=== PATIENT | female | born 1930 | race Caucasian/White ===

== ENCOUNTER 2017-12-18 15:56 | Inpatient (IN) | payer MEDICARE, OTHER ==
--- NOTE | 2017-12-18 16:59 | CT ---
CT BRAIN WITHOUT CONTRAST: HISTORY: Altered mental status. COMPARISON: None. FINDINGS: No acute territorial infarction or hemorrhage. No midline shift or mass effect. Moderate atrophy. Moderate to severe deep white matter microangiopathic changes. The orbits are unremarkable. The calvarium is intact. Paranasal sinuses and mastoids are clear. IMPRESSION: No acute intracranial abnormality. POS: [facility]
--- NOTE | 2017-12-18 17:18 | RAD ---
PORTABLE CHEST: 12/18/17 HISTORY: Dyspnea. COMPARISON: 12/15/17. FINDINGS/IMPRESSION: Bilateral pleural effusions, larger on the right. Cardiomegaly. Mild vascular engorgement. Bibasilar atelectasis and/or consolidation. POS: [facility]
[2017-12-18 17:36] LABS: #Eosinphils 0.1 thou/uL (0.0-0.7); #Lymphocytes 0.9 thou/uL (1.20-3.40); #Monocytes 0.3 thou/uL (0.11-0.59); #Neutrophils 12.3 thou/uL (1.40-6.50); %Basophils 0.2 % (0.0-1.0); %Eosinophils 1.1 % (0.0-10.0); %Lymphocytes 6.3 % (21.0-51.0); %Monocytes 2.1 % (0.0-10.0); %Neutrophils 90.3 % (42.0-75.0); Hemoglobin 14.9 g/dL (12.0-16.0); Mean Corpuscular HGB CONC 31.5 g/dL (32.0-36.0); Mean Corpuscular Hemoglobin 31.9 pg (27.0-31.0); Platelet Count 412 thou/uL (130-400); RBC Distribution Width 16.5 % (11.5-14.5); Red Blood Cell (RBC) Count 4.66 mill/uL (4.20-5.40); White Blood Cell (WBC) Count 13.6 thou/uL (4.8-10.8)
[2017-12-18] MEDS ORDERED: Furosemide 40 MG/4 ML VIAL ONE (17:39)
[2017-12-18] MEDS ORDERED: Nitroglycerin 2% Ointment 1 INCH/1 GM Packet ONE (17:39)
[2017-12-18 17:44] LABS: INR-International Normal Ratio 1.1; PTT 31.2 SEC (22.9-36.1); Prothrombin Time 14.5 SEC (12.0-14.7)
[2017-12-18] MEDS ORDERED: Azithromycin 500 MG VIAL ONE (17:51)
[2017-12-18 17:52] LABS: ALT (SGPT) 16 U/L (8-55); AST (SGOT) 18 U/L (5-34); Albumin 3.5 g/dL (3.4-4.8); Alkaline Phosphatase 117 U/L (40-150); Anion Gap 16 mmol/L (10-20); BUN (Urea Nitrogen) 18 mg/dL (9.8-20.1); Bilirubin, Total 1.1 mg/dL (0.2-1.2); CK (CPK) 22 U/L (29-168); Calc. Creatinine Clearance 0 mL/min (70-130); Calcium 9.2 mg/dL (7.8-10.44); Carbon Dioxide 31 mmol/L (23-31); Chloride 91 mmol/L (98-107); Estimated GFR-MDRD 71; Globulin 2.5 g/dL (2.4-3.5); Glucose 103 mg/dL (83-110); Lipase 10 U/L (8-78); Potassium 3.6 mmol/L (3.5-5.1); Sodium 134 mmol/L (136-145)
[2017-12-18 17:57] LABS: CKMB 1.2 ng/mL (0-6.6); Troponin I 0.026 ng/mL (< 0.028)
[2017-12-18] MEDS ORDERED: Ondansetron HCl/PF 4 MG/2 ML Vial IVP PRN (20:58)
[2017-12-18] MEDS ORDERED: Acetaminophen 325 MG TAB PO PRN (20:58)
[2017-12-18] MEDS ORDERED: Ondansetron ODT 4 MG TAB SL PRN (20:58)
[2017-12-18] MEDS ORDERED: HYDROcodone/Acetaminophen 5/325 mg Tablet PO PRN (20:58)
[2017-12-18 21:09] LABS: Troponin I 0.025 ng/mL (< 0.028)
[2017-12-18 23:33] LABS: Troponin I 0.024 ng/mL (< 0.028)
[2017-12-19] MEDS ORDERED: HYDROcodone/Acetaminophen 5/325 mg Tablet PO PRN (01:40)
[2017-12-19] MEDS ORDERED: Acetaminophen 325 MG TAB PO PRN (01:47)
[2017-12-19] MEDS ORDERED: Bisacodyl 10 MG SUPP PR PRN (01:47)
[2017-12-19] MEDS ORDERED: Nitroglycerin 0.4 MG TAB (25 Tab Bottle) PO PRN (01:47)
[2017-12-19] MEDS ORDERED: Eucerin (Mineral Oil/Petrolatum,White) 30 gm Jar TOP PRN (01:49)
[2017-12-19] MEDS ORDERED: hydrALAZINE 20 MG/ML VIAL SLOW IVP PRN (01:49)
--- NOTE | 2017-12-19 01:50 | PDOC.EVN ---
Event Note - Event Note Event Note: No Lovenox due to recent back surgery
--- NOTE | 2017-12-19 02:56 | HP ---
DATE OF ADMISSION: 12/18/2017 The patient was seen and examined on 12/18/2017. PRIMARY CARE PHYSICIAN: Dr. Andersen at [facility]. Please note patient was a transf er from [facility]. PRIMARY MANAGER ENTERPRISE CONTENT MANAGEMENT: Dr. Gale at [facility]. CODE STATUS: FULL CODE. SURROGATE DECISION MAKER: The daughter, daughter at the bedside. CHIEF COMPLAINT: Shortness of breath. HISTORY OF PRESENT ILLNESS: The patient is an 87-year-old female with chronic obstructive pulmonary disease, chronic diastolic heart failure with recent back surgery currently deciding at the inpatient rehabilitation presented to the Emergency Room from [facility] due to shortness of br eath. The patient was admitted at [facility] from 11/28/2017 to 12/09/2017. She was d iagnosed with T12 compression fracture. She also had on code blue due to pain medications requiring intubation and mechanical ventilation. An echocardiogram showed normal ejection fraction. She also had a recent stress test that was normal. She underwent surgery without any complications. She was then discharged to inpatient rehabilitation on the . At the inpatient rehabilitation, she had some issues with constipation/fecal retention. She also dev eloped some congestive heart failure and Lasix was resumed. She has been also having some intermitte nt hallucination and tremors, which the daughter thinks could be due to tramadol that was started at the inpatient rehabilitation. In the emergency room, her initial vital signs showed temperature 97.5, respirations 28, pulse rate o f 68, blood pressure 148/63 with O2 saturation 68% on room air. O2 saturation improved to 94% on 3 l iters nasal cannula. The chest x-ray showed bilateral pleural effusions, larger on the right with car diomegaly and mild vascular engorgement. There was possible bilateral atelectasis and/or consolidati on. She received ceftriaxone, azithromycin, 40 mg IV Lasix with aspirin and 1 inch nitro patch. A B PSYCHOLOGIST SOCIAL was 1500 with negative troponins. PAST MEDICAL HISTORY: 1. Atrial fibrillation. 2. Non-Hodgkin's lymphoma. 3. Congestive heart failure, diastolic type, with an echocardiogram last month. 4. Chronic obstructive pulmonary disease. 5. Gastroesophageal reflux disease. 6. Hypertension. 7. Peptic ulcer disease. 8. Macular degeneration. The patient is legally blind. 9. Depression. PAST SURGICAL HISTORY: Gastric surgery, details unavailable. ALLERGIES: The patient is allergic to SULFA, FLAGYL and possible TRAMADOL per family. CURRENT HOME MEDICATIONS: According to the list provided by the daughter, Delma; Prozac 60 mg leana ly, Valtrex 500 mg 4 times a day, Bentyl as needed, Lomotil as needed, aspirin 81 mg daily, albuterol as needed, carvedilol 25 b.i.d., amiodarone 200 mg daily, Sherrard 5/325 half tablet as needed, lidocai ne patch, and nystatin. SOCIAL HISTORY: The patient currently is at the inpatient rehabilitation. No smoking, alcohol or dr ug use. FAMILY HISTORY: Negative for premature coronary artery disease. REVIEW OF SYSTEMS: Cannot be reliably obtained from the patient due to current cognitive status. PHYSICAL EXAMINATION: VITAL SIGNS: As discussed above. GENERAL: An 87-year-old female with intermittent confusion. At times, she is alert and awake. HEENT: Head: Atraumatic, normocephalic. Sclerae are anicteric. Moist mucous membranes. No oral l esion. NECK: Supple, no JVD appreciated. No carotid bruit. LUNGS: Showed diffuse expiratory wheezing with diminished air entry at bases. There were scattered rhonchi. HEART: S1, S2 present. Regular rate and rhythm. No rubs or gallops appreciated. There was 2/6 sys tolic murmur over the mitral area. ABDOMEN: Soft, nontender, bowel sounds present. EXTREMITIES: No edema or calf tenderness. NEUROLOGIC: The patient is intermittently confused. She appears anxious. She has spontaneous tremo rs. According to daughter, she also had some hallucinations. NEUROLOGIC: Could not be done due to current cognitive status. PSYCHIATRY: Could not be done due to current cognitive status. SKIN: Warm and dry. LYMPH NODES: No palpable lymph nodes in the neck. PERIPHERAL VASCULAR: Radial pulses palpable bilaterally. MUSCULOSKELETAL: No joint swelling or tenderness. LABORATORY FINDINGS: Troponins were negative. BNP 1510. Sodium 134, potassium 3.6. WBC was 13.6 w ith hemoglobin 14.9, platelet count of 412. Chest x-ray and EKG by my review as discussed above. EK G showed sinus rhythm with nonspecific ST-T wave changes. IMPRESSION: 1. Acute hypoxic respiratory failure. 2. Acute on chronic diastolic heart failure exacerbation. 3. Bilateral pneumonia, suspected aspiration. 4. Chronic obstructive pulmonary disease exacerbation. 5. Non-Hodgkin's lymphoma followed at [facility]. 6. Paroxysmal atrial fibrillation, probably not an anticoagulation candidate. 7. Gastroesophageal reflux disease. 8. Peptic ulcer disease. 9. Hypertension. 10. Macular degeneration/legal blindness. 11. Depression. 12. Leukocytosis probably secondary to pneumonia. 13. Hyponatremia. 14. Recent back surgery. 15. Recent respiratory arrest requiring mechanical ventilation from pain medications at [place] and it. 16. Toxic metabolic encephalopathy. PLAN: The patient will be monitored on the telemetry unit. We will consult speech therapy. Please note, patient had barium swallow with speech at [facility]. The patient's daughter can probably get the report from [facility] my charts. We will also rule out deep venous thrombosis due to recent hospitalization and surgery. We will start low dose diuretics along with steroids, antibiotic s, nebulizer treatment and oxygen. Consult Pulmonary in a.m. We will repeat chest x-ray. Resume se lected home medications. Discontinue tramadol. The patient will require 2 to 3 days for stabilizati on Plan of care was discussed with the patient and her daughter, Delma at the bedside. Please note that patient was seen on 12/18/2017.
[2017-12-19] MEDS ORDERED: Cefepime 1 GM in Syringe 10 ML SLOW IVP SCH (05:00)
[2017-12-19] MEDS ORDERED: Furosemide 40 MG/4 ML VIAL SLOW IVP SCH (06:00)
[2017-12-19] MEDS ORDERED: Furosemide 20 MG/2 ML VIAL SLOW IVP SCH (06:00)
[2017-12-19] MEDS ORDERED: Aspirin 325 mg Enteric Coated Tablet PO SCH (06:00)
[2017-12-19 06:10] LABS: #Basophils 0.1 thou/uL (0.0-0.2); #Eosinphils 0.1 thou/uL (0.0-0.7); #Lymphocytes 0.7 thou/uL (1.20-3.40); #Monocytes 0.9 thou/uL (0.11-0.59); #Neutrophils 15.1 thou/uL (1.40-6.50); %Basophils 0.7 % (0.0-1.0); %Eosinophils 0.5 % (0.0-10.0); %Lymphocytes 4.2 % (21.0-51.0); %Monocytes 5.2 % (0.0-10.0); %Neutrophils 89.4 % (42.0-75.0); Hemoglobin 15.5 g/dL (12.0-16.0); Mean Corpuscular HGB CONC 31.4 g/dL (32.0-36.0); Mean Corpuscular Hemoglobin 31.4 pg (27.0-31.0); Mean Platelet Volume 10.3 fL (7.4-10.4); Platelet Count 297 thou/uL (130-400); RBC Distribution Width 16.7 % (11.5-14.5); Red Blood Cell (RBC) Count 4.93 mill/uL (4.20-5.40); White Blood Cell (WBC) Count 16.9 thou/uL (4.8-10.8)
[2017-12-19 07:40] LABS: Folate (Folic Acid) 24.8 ng/mL (7.0-31.4)
--- NOTE | 2017-12-19 07:41 | ULT ---
BILATERAL LOWER EXTREMITY VENOUS DUPLEX EXAM: Date: 12/19/17 HISTORY: Leg pain and swelling. FINDINGS: Real-time color Doppler evaluation of right and left lower extremity was performed from groin to calf . This includes evaluation of the common femoral, superficial and profunda femoral, saphenous, poplit eal, and trifurcation veins. This shows patent deep venous system bilaterally. There is normal compre ssibility and augmentation. There is no evidence of deep venous thrombosis. IMPRESSION: No evidence of deep venous thrombosis of either lower extremity. POS: [facility]
[2017-12-19] MEDS: Carvedilol 6.25 MG TAB PO SCH ×2 (08:28→18:32)
[2017-12-19] MEDS: Lidocaine 5% Patch TD SCH (08:29)
[2017-12-19] MEDS: Amiodarone 200 MG TAB PO SCH (08:34)
[2017-12-19] MEDS: Aspirin 81 mg Enteric Coated Tablet PO SCH (08:34)
[2017-12-19] MEDS: Polyethylene Glycol 3350 17 GM Packet PO SCH (08:35)
--- NOTE | 2017-12-19 08:52 | RAD ---
PORTABLE CHEST: COMPARISON: Prior day's study. HISTORY: Shortness of breath. FINDINGS: Heart size is enlarged. There are atherosclerotic changes of the aorta. There is elevation of the r ight hemidiaphragm. Pleural and parenchymal changes appear relatively stable as compared to the prio r exam. IMPRESSION: Essentially stable chest. POS: [facility]
[2017-12-19] MEDS ORDERED: Doxycycline 100 MG CAP PO SCH (09:00)
[2017-12-19] MEDS ORDERED: FLUoxetine HCl 20 MG CAP PO SCH (09:00)
[2017-12-19] MEDS: FLUoxetine HCl 20 MG CAP PO SCH (09:10)
[2017-12-19] MEDS: Senokot S 8.6-50 MG TAB PO SCH ×2 (09:14→20:26)
[2017-12-19] MEDS: Famotidine 20 MG TAB PO SCH ×2 (09:14→20:26)
[2017-12-19 09:26] LABS: Albumin 3.9 g/dL (3.4-4.8); BUN (Urea Nitrogen) 22 mg/dL (9.8-20.1); BUN/Creatinine Ratio 24.44; Calc. Creatinine Clearance 0 mL/min (70-130); Calcium 9.8 mg/dL (7.8-10.44); Estimated GFR-MDRD 59; Glucose 102 mg/dL (83-110); Phosphorus 3.3 mg/dL (2.3-4.7)
[2017-12-19 09:34] LABS: Anion Gap 22 mmol/L (10-20); Carbon Dioxide 34 mmol/L (23-31); Chloride 84 mmol/L (98-107); Sodium 137 mmol/L (136-145)
[2017-12-19] MEDS: Acetaminophen 650 MG/20.3 ML UDCUP PO SCH ×2 (13:05→18:31)
[2017-12-19] MEDS: Piperacillin/Tazobactam 3.375 GM in Sodium Chloride 0.9% 100 ML IVPB SCH ×2 (13:08→20:32)
--- NOTE | 2017-12-19 14:25 | PDOC.PN ---
- Subjective Encounter Start Date: 12/19/17 Encounter Start Time: 14:24 Subjective: pt sonuinh hallucinations and somnolent -: daughter at bedside.care discussed in detail - Objective Resuscitation Status: Resuscitation Status FULL:Full Resuscitation MAR Reviewed: Yes Vital Signs & Weight: Vital Signs (12 hours) Temp Pulse Pulse Pulse Resp BP BP 12/19/17 13:52 83 20 12/19/17 13:05 107 H 105 H 123/74 12/19/17 10:53 77 20 12/19/17 08:28 118/65 12/19/17 08:12 105 H 12/19/17 08:00 98.1 F 83 22 H 12/19/17 07:47 12/19/17 07:43 88 18 12/19/17 04:00 98.4 F 72 26 H BP BP Pulse Ox Pulse Ox 12/19/17 13:52 12/19/17 13:05 110/59 L 12/19/17 10:53 92 L 12/19/17 08:28 12/19/17 08:12 90 L 12/19/17 08:00 126/58 L 94 L 12/19/17 07:47 95 12/19/17 07:43 95 12/19/17 04:00 96/54 L 93 L Weight Weight 104 lb Result Diagrams: 12/19/17 04:42 12/19/17 04:42 Additional Labs: Microbiology 12/18/17 17:22 Venous blood - Right Hand Blood Culture - Preliminary Specimen has been received and culture in progress. No Growth to date. 12/18/17 17:22 Venous blood - Left Hand Blood Culture - Preliminary Specimen has been received and culture in progress. No Growth to date. Laboratory Tests 10/22/17 12/12/17 12/18/17 05:00 03:35 05:00 WBC Troponin I B-Natriuretic Peptide 474.6 H 1246.7 H 1313.2 H Vitamin B12 Folate TSH 3rd Generation 12/18/17 12/18/17 12/18/17 17:21 17:21 17:21 WBC 13.6 H Troponin I B-Natriuretic Peptide 1510.4 H Vitamin B12 Folate TSH 3rd Generation 3.0717 12/18/17 12/18/17 12/18/17 17:21 20:26 23:00 WBC Troponin I 0.026 0.025 0.024 B-Natriuretic Peptide Vitamin B12 Folate TSH 3rd Generation 12/19/17 12/19/17 04:42 05:18 WBC 16.9 H Troponin I B-Natriuretic Peptide Vitamin B12 947 H Folate 24.80 TSH 3rd Generation Phys Exam - Physical Examination Constitutional: NAD sleepy but easily awakens.hand movements in air when sleeping HEENT: PERRLA, sclera anicteric, oral pharynx no lesions dry mucosa.red raw tounge Neck: no JVD Respiratory: no wheezing, no rales, no rhonchi, clear to auscultation bilateral Cardiovascular: RRR, no significant murmur Gastrointestinal: soft, non-tender, no distention, positive bowel sounds Musculoskeletal: no edema, pulses present Neurological: non-focal, normal sensation, moves all 4 limbs Psychiatric: normal affect, A&O x 3 Skin: no rash Dx/Plan (1) Acute hypoxemic respiratory failure Code(s): J96.01 - ACUTE RESPIRATORY FAILURE WITH HYPOXIA Status: Acute (2) Acute exacerbation of chronic obstructive pulmonary disease (COPD) Code(s): J44.1 - CHRONIC OBSTRUCTIVE PULMONARY DISEASE W (ACUTE) EXACERBATION Status: Acute (3) Aspiration pneumonia Code(s): J69.0 - PNEUMONITIS DUE TO INHALATION OF FOOD AND VOMIT Status: Acute (4) Acute on chronic diastolic congestive heart failure due to valvular disease Code(s): I50.33 - ACUTE ON CHRONIC DIASTOLIC (CONGESTIVE) HEART FAILURE; I38 - ENDOCARDITIS, VALVE UNSPECIFIED Status: Acute (5) Hypokalemia Code(s): E87.6 - HYPOKALEMIA Status: Acute (6) Metabolic encephalopathy Code(s): G93.41 - METABOLIC ENCEPHALOPATHY Status: Acute (7) H/O non-Hodgkin's lymphoma Code(s): Z85.72 - PERSONAL HISTORY OF NON-HODGKIN LYMPHOMAS Status: Acute (8) Paroxysmal atrial fibrillation Code(s): I48.0 - PAROXYSMAL ATRIAL FIBRILLATION Status: Acute Comment: stable on Amiodarone and BB (9) Esophageal stricture Code(s): K22.2 - ESOPHAGEAL OBSTRUCTION Status: Chronic (10) Malnutrition Code(s): E46 - UNSPECIFIED PROTEIN-CALORIE MALNUTRITION Status: Chronic Qualifiers: Malnutrition type: protein-calorie malnutrition Protein-calorie malnutrition severity: moderate Qualified Code(s): E44.0 - Moderate protein- calorie malnutrition - Plan plan discussed w/ family, continue antibiotics, PT/OT, medical social consultant, speech therapy, respiratory therapy, incentive spirometry, out of bed/ambulate, DVT proph w/SCDs Cont nebs, steroids,gentle diuresis.reduce lasix dose. -: consult [facility].pt on pureed diet at Rehab.Op w/u for stricture per family -: cont Levaquin.add Zosyn for possible Asp PNA. -: DC all naroctics.Tylenol scheduled and IV Ibuprofen PRN -: encourage day time wakefullness.add Melatonin qhs * .NAAT pending. * cont supportive care. * Full code for now but daughter leaning towards DNR/DNI.needs more time to think.will consult palliative care team * am labs. * strict I/Os. * ECHO * replace and recheck potassium Review of Systems - Review of Systems Other: can not be reliably obtained due to somnolence but reports no active issues - Medications/Allergies Allergies/Adverse Reactions: Allergies Allergy/AdvReac Type Severity Reaction Status Date / Time metronidazole [From Flagyl] Allergy Verified 12/18/17 22:11 Sulfa (Sulfonamide Allergy Verified 12/18/17 22:11 Antibiotics) tramadol Allergy Verified 12/18/17 22:14 Medications: Current Medications Acetaminophen (Tylenol Elixir) 650 mg PO Q6HR [facility] Last Admin: 12/19/17 13:05 Dose: 650 mg Albuterol/Ipratropium (Duoneb) 3 ml NEB [id number] [facility] Last Admin: 12/19/17 13:52 Dose: 3 ml Albuterol/Ipratropium (Duoneb) 3 ml NEB Q2H PRN PRN Reason: SOB &/or Wheezing Amiodarone HCl (Cordarone) 200 mg PO DAILY [facility] Last Admin: 12/19/17 08:34 Dose: 200 mg Aspirin (Ecotrin) 81 mg PO DAILY [facility] Last Admin: 12/19/17 08:34 Dose: 81 mg Bisacodyl (Dulcolax) 10 mg DC Q24H PRN PRN Reason: Constipation Carvedilol (Coreg) 6.25 mg PO BID-[facility] Last Admin: 12/19/17 08:28 Dose: 6.25 mg Famotidine (Pepcid) 20 mg PO BID [facility] Last Admin: 12/19/17 09:14 Dose: 20 mg Fluoxetine HCl (Prozac) 60 mg PO DAILY [facility] Last Admin: 12/19/17 09:10 Dose: 60 mg Furosemide (Lasix) 20 mg SLOW IVP DAILY [facility] Hydralazine HCl (Apresoline) 5 mg SLOW IVP Q4H PRN PRN Reason: SBP Greater Than 180 Cefepime HCl 1 gm/ Syringe 10 mls @ 120 mls/hr SLOW IVP 0500,1700 [facility] Last Admin: 12/19/17 04:33 Dose: 10 mls Piperacillin Sod/Tazobactam (Sod 3.375 gm/ Sodium Chloride) 100 mls @ 200 mls/ hr IVPB Q6HR [facility] Last Admin: 12/19/17 13:08 Dose: 100 mls Ibuprofen 400 mg/ Sodium (Chloride) 104 mls @ 200 mls/hr IVPB Q6H PRN; Protocol PRN Reason: Fever>101/(Mi/Mod/Sev) Pain Potassium Chloride 40 meq/ (Device) 100 mls @ 25 mls/hr IVPB ONE [facility] Lidocaine (Lidoderm 5% Patch) 1 patch TD DAILY [facility] Last Admin: 12/19/17 08:29 Dose: 1 patch Methylprednisolone Sodium Succinate (Solu-Medrol) 20 mg IVP Q6HR [facility] Last Admin: 12/19/17 13:05 Dose: 20 mg Mineral Oil/White Petrolatum (Eucerin Cream) 0 gm TOP BIDPRN PRN PRN Reason: Dry Skin Miscellaneous Medication (Pharmacy To Dose) 1 each IVPB PRN PRN PRN Reason: RENAL Pharmacy to dose Miscellaneous Medication (Lidocaine Patch Removal) 1 each TOP 2100 [facility] Mometasone Furoate/Formoterol Fumar (Dulera 200 Mcg/5 Mcg Inhaler) 1 puff INH BID-RT [facility] Nitroglycerin (Nitrostat) 0.4 mg PO Q5MIN PRN PRN Reason: Chest Pain Polyethylene Glycol (Miralax) 17 gm PO DAILY [facility] Last Admin: 12/19/17 08:35 Dose: 17 gm Potassium Chloride (Klor-Con) 20 meq PO BID-WM [facility] Last Admin: 12/19/17 08:35 Dose: 20 meq Senna/Docusate Sodium (Senokot S) 1 tab PO BID [facility] Last Admin: 12/19/17 09:14 Dose: 1 tab Sodium Chloride (Flush - Normal Saline) 10 ml IVF Q12HR [facility] Last Admin: 12/19/17 09:18 Dose: 10 ml Sodium Chloride (Flush - Normal Saline) 10 ml IVF PRN PRN PRN Reason: Saline Flush Last Admin: 12/19/17 05:54 Dose: 10 ml
[2017-12-19] MEDS ORDERED: Potassium Chloride 40 MEQ in Premix Bag 1 BAG IVPB SCH (14:30)
[2017-12-19] MEDS ORDERED: Potassium Chloride 40 MEQ, Admixture Fee 1 EACH in Sodium Chloride 0.9% 250 ML 250 ML IVPB SCH (14:45)
[2017-12-19 17:18] LABS: Lactic Acid 1.1 mmol/L (0.5-2.2)
[2017-12-19] MEDS: Mometasone/Formoterol 120 PUFF INHALER INH SCH (19:13)
--- NOTE | 2017-12-19 19:22 | CT ---
CT CHEST WITHOUT CONTRAST: 12/19/17 HISTORY: Chest pain. Dyspnea. Assess for effusion or infiltrate. FINDINGS: There are chronic lung parenchymal findings. Diffuse interstitial thickening is seen bilaterally. The re is small to moderate right pleural effusion. There is dense right basilar atelectasis and/or conso lidation. Mild left basilar atelectasis. Cardiomegaly. Vascular congestion. Images through the upper abdomen show no acute process. IMPRESSION: 1. Small to moderate right pleural effusion. Tiny left effusion. 2. Dense right basilar atelectasis and/or consolidation and mild left basilar atelectasis. 3. Chronic lung parenchymal changes with diffuse interstitial thickening. POS: [facility]
--- NOTE | 2017-12-19 19:35 | CON ---
DATE OF CONSULTATION: 12/19/2017 SERVICE: Pulmonary Medicine. REASON FOR CONSULTATION: Acute hypoxic respiratory failure. HISTORY OF PRESENT ILLNESS: The patient is an 87-year-old white female with past medical history significant for oxygen-dependent COPD. She was in her usual state of health until roughly 2 weeks ago. She was in her pantry and got caught up on a nasal cannula. She twisted around and pulled hard on the cannula. Her feet slipped out from underneath her and she landed on her bottom. She fractured her lumbar spine. Ultimately, she went to the emergency department. She was diagnosed as having a fracture of the vertebral body. She went to [facility] and this was injected with cement. She had immediate resolution of the discomfort. Unfortunately, before that procedure could be done, they were trying to get her pain under control and she had an apneic event. She required a brief episode of chest compressions and was intubated briefly. She was in the hospital for a protracted course. She was recovering ultimately, she had a spontaneous return of circulation, return of neurologic function. She was subsequently discharged to [facility]. She was recovering very nicely, but when she went there, her Lasix was not restarted. She developed increasing shortness of breath. She had an episode of severe shortness of breath with. She was hypoxemic on multiple occasions. She subsequently was sent back to our emergency department. She was given a couple of doses of Lasix and overnight, she has improved a little bit. She also was thought to be aspirating when she was down at [facility] and they did a barium swallow which was essentially unremarkable, but a stricture was noted. She has been having some difficulties with swallowing for some time. Otherwise , she is returning to her usual state of health. PAST MEDICAL HISTORY: 1. COPD. 2. Chronic hypoxic respiratory failure. 3. Atrial fibrillation. 4. Non-Hodgkin's lymphoma, currently in remission. 5. Chronic diastolic heart failure. 6. Gastroesophageal reflux disease. 7. Hypertension. 8. Peptic ulcer disease. 9. Major depressive disorder. 10. Macular degeneration, legally blind. PAST SURGICAL HISTORY: 1. Gastric surgeries. 2. Vertebroplasty. ALLERGIES: SULFA, FLAGYL, TRAMADOL. MEDICATIONS: List of her inpatient medications were reviewed. No specific updates were made at this time. SOCIAL HISTORY: Negative for alcohol, tobacco or illicit drug use. She denies any exposure to chemical, dust, asbestos, or tuberculosis. FAMILY HISTORY: Noncontributory. REVIEW OF SYSTEMS: General, head, ears, eyes, nose, throat, cardiovascular, respiratory, GI, , musculoskeletal, neurologic and skin is negative except as mentioned in the HPI. PHYSICAL EXAMINATION: VITAL SIGNS: Afebrile, pulse 83, blood pressure 110/59, respirations 20, saturation 92% on 4 liters nasal cannula. GENERAL: The patient is awake and alert. She is in no apparent distress. LUNGS: Reduced air entry bilaterally. There is not much of a prolonged expiratory phase. The right lung has much reduced air entry. Faint crackles are present on the right. There are latter crackles on the left. No wheezing or rhonchi are appreciated. HEART: Normal rate, regular. ABDOMEN: Soft, nontender, nondistended. Bowel sounds positive. MUSCULOSKELETAL: No cyanosis or clubbing. There is no pitting in the bilateral lower extremities. NEUROLOGIC: Grossly nonfocal. LABORATORY DATA: WBC 16.9 and up trending, hemoglobin 15.5, platelets 297,000. Neutrophil count is 90%. INR 1.1. Bicarbonate 34, chloride 84. Potassium 3.0. Basic metabolic profile is otherwise unremarkable. Creatinine 0.9, BUN 22. Liver function studies were previously unremarkable. BNP 1500 (baseline unknown, but she has been as high as 4000 previously), troponin negative x3. Vitamin B12 is elevated, folate is normal. TSH falls within normal limits. Blood cultures x2 are unremarkable. IMAGING: Chest x-ray demonstrates bilateral pleural effusions. There is volume loss in the right side. An alternative would be that we are dealing with a subpulmonic pleural effusion. The left lung is hyperexpanded and flattened. Interstitial markings are prominent. Cardiomegaly is evident though this is an AP film. There is possible meniscus sign suggestive of fluid versus atelectasis of the right middle lobe on this film as the right heart border has lost: Ultrasound of the bilateral lower extremities demonstrates no evidence of a DVT. CT of the brain demonstrates no evidence of acute intracranial abnormality. ASSESSMENT: 1. Acute on chronic hypoxic respiratory failure. 2. Acute on chronic diastolic heart failure. 3. Atrial fibrillation. 4. Deconditioning. 5. 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 6. Chronic obstructive pulmonary disease without current exacerbation. PLAN: We will diurese the patient to euvolemia. GI consultation will be placed. I will get a lactate to help us explain why she has an anion gap of 22. We also get ABG, so we can interpret that lactate. Potassium will be replaced. Pulmonary Critical Care will continue to follow while the patient remains in this location. 70 minutes have been devoted to this patient in various activities. I personally reviewed all imaging studies and laboratory data noted within this document. For at least half of this time, I was interacting with the patient at the bedside or coordinating care with the care team. For the remainder of the time I was immediately available to the patient in the hospital unit. BAUDILIO
[2017-12-19] MEDS: Melatonin 3 MG TAB PO PRN (20:26)
[2017-12-19] MEDS: Lidocaine Patch Removal 1 EACH TOP SCH (20:30)
[2017-12-20] MEDS: Piperacillin/Tazobactam 3.375 GM in Sodium Chloride 0.9% 100 ML IVPB SCH ×4 (00:13→18:04)
[2017-12-20] MEDS: Acetaminophen 650 MG/20.3 ML UDCUP PO SCH ×4 (00:16→18:05)
[2017-12-20 05:25] LABS: #Basophils 0.1 thou/uL (0.0-0.2); #Lymphocytes 0.8 thou/uL (1.20-3.40); #Monocytes 0.6 thou/uL (0.11-0.59); #Neutrophils 12.8 thou/uL (1.40-6.50); %Basophils 0.5 % (0.0-1.0); %Eosinophils 0.1 % (0.0-10.0); %Lymphocytes 5.3 % (21.0-51.0); %Neutrophils 90.1 % (42.0-75.0); Hemoglobin 13.9 g/dL (12.0-16.0); Mean Corpuscular HGB CONC 31.5 g/dL (32.0-36.0); Mean Corpuscular Hemoglobin 31.8 pg (27.0-31.0); Platelet Count 367 thou/uL (130-400); RBC Distribution Width 16.4 % (11.5-14.5); Red Blood Cell (RBC) Count 4.39 mill/uL (4.20-5.40); White Blood Cell (WBC) Count 14.2 thou/uL (4.8-10.8)
[2017-12-20 05:41] LABS: Albumin 3.5 g/dL (3.4-4.8); BUN (Urea Nitrogen) 31 mg/dL (9.8-20.1); BUN/Creatinine Ratio 27.43; Calc. Creatinine Clearance 26 mL/min (70-130); Calcium 9.3 mg/dL (7.8-10.44); Estimated GFR-MDRD 45; Glucose 130 mg/dL (83-110); Magnesium 2.4 mg/dL (1.6-2.6); Phosphorus 3.2 mg/dL (2.3-4.7)
[2017-12-20 05:50] LABS: Anion Gap 21 mmol/L (10-20); Carbon Dioxide 34 mmol/L (23-31); Chloride 85 mmol/L (98-107); Potassium 3.1 mmol/L (3.5-5.1); Sodium 137 mmol/L (136-145)
[2017-12-20] MEDS: Mometasone/Formoterol 120 PUFF INHALER INH SCH ×2 (07:03→19:47)
[2017-12-20 07:56] VITALS: BMI 18.1
[2017-12-20] MEDS: Lidocaine 5% Patch TD SCH (08:19)
[2017-12-20] MEDS: Polyethylene Glycol 3350 17 GM Packet PO SCH (08:19)
[2017-12-20] MEDS: Famotidine 20 MG TAB PO SCH ×2 (08:20→21:28)
[2017-12-20] MEDS: FLUoxetine HCl 20 MG CAP PO SCH (08:21)
[2017-12-20] MEDS: Amiodarone 200 MG TAB PO SCH (08:21)
[2017-12-20] MEDS: Aspirin 81 mg Enteric Coated Tablet PO SCH (08:21)
[2017-12-20] MEDS: Carvedilol 6.25 MG TAB PO SCH ×2 (08:21→16:25)
[2017-12-20] MEDS: Potassium Chloride 20 MEQ TAB PO SCH ×3 (08:26→16:31)
[2017-12-20] MEDS: Senokot S 8.6-50 MG TAB PO SCH ×2 (08:40→21:30)
[2017-12-20] MEDS ORDERED: Furosemide 20 MG/2 ML VIAL SLOW IVP SCH ×2 (09:00)
--- NOTE | 2017-12-20 14:09 | CON ---
DATE OF CONSULTATION: 12/20/2017 REFERRING PHYSICIAN: Dr. William Lunsford - Dr. Werner Sauer REASON FOR CONSULTATION: Dysphagia and history of esophageal stricture. HISTORY OF PRESENT ILLNESS: Ms. Jocelyn Ramirez is a very pleasant 87-year-old female hospit alized because of aspiration with hypoxia and respiratory failure. Since admission, the patient has been seen by Dr. River Mccloud. An abdominal CAT scan and chest CAT scan shows bilateral effusion a nd pneumonia. The patient is on IV antibiotics. The patient has history of dysphagia off and on. T his appears to be longstanding. Apparently, she was hospitalized at the [facility] in [place] a couple of times and nothing was actually worked up for the dysphagia. The patient has had an EGD and a colonoscopy, I believe in 2013. As per the patient's daughter in [place]. The p atient seems to think that something happened during the procedure that is what is causing dysphagia. She has difficulty swallowing, mostly solid food and also big pills. They tend to hangup, make her cough and choke. Apparently this has been going on for a while. She has had a modified swallow keesha dy during this last admission at [facility]. The family is not really aware of the swallow stud y findings. At the present time, she appears very comfortable and she is actually lying down flat an d is not short of breath. She complains of cough off and on with some scanty sputum. The patient morris s no other relevant history. MEDICAL ILLNESSES: 1. COPD. 2. Chronic hypoxic respiratory failure. 3. Atrial fibrillation. 4. Non-Hodgkin's lymphoma, currently in remission. 5. Chronic diastolic heart failure. 6. Chronic acid reflux. 7. Hypertension. 8. Peptic ulcer disease. 9. Major depression disorder. 10. Macular degeneration, legally blind. 11. History of recent spine fracture following a fall at home and had some surgical procedure done. 12. History of respiratory arrest during the last admission at [facility] after she was given l arge doses of pain medication. PAST SURGICAL HISTORY: 1. Spinal surgery. 2. History of gastric surgery. 3. EGD and colonoscopy in 2013. ALLERGIES: SULFA, FLAGYL, TRAMADOL. MEDICATIONS: List reviewed. SOCIAL HISTORY: The patient has no history of alcohol intake or any smoking. FAMILY HISTORY: Unremarkable. REVIEW OF SYSTEMS: 1. Remarkable for dysphagia, coughing and choking during mealtime: 2. History of back pain. 3. History of coughing with some scant sputum. PHYSICAL EXAMINATION: GENERAL: The patient is a very fragile looking, elderly, white female who appears very comfortable. She is awake, alert, and communicative. Unfortunately her vision is impaired and she cannot see mary y well. VITAL SIGNS: Temperature 97.5 degrees Fahrenheit, pulse is 85, blood pressure is 127/63. HEENT: Conjunctivae clear. NECK: Supple. No adenitis or thyromegaly noted. CARDIOVASCULAR: First and second heart sounds normal. LUNGS: Clear to auscultation. ABDOMEN: The abdomen is soft. The abdomen is nondistended. Abdomen is nontender. There is no orga nomegaly or masses. EXTREMITIES: Reveal no edema. LABORATORY DATA: CBC; WBC 14,200, hemoglobin 13.9, hematocrit 44.2, MCV 101, platelet count 367,000, polymorphs 90, lymphocytes 5, monocytes 4. Serum chemistries: Sodium is 137, potassium 3.1, chlori de 85, bicarbonate 24, BUN is 31, creatinine 1.13 mg percent, calcium 9.3, phosphorus 3.2, magnesium 2.4, vitamin B12 947. Folate is 2480. The abdominal CAT scan done shows bilateral pleural effusion and also consolidation and dense basilar atelectasis versus pneumonia. She also has some chronic int erstitial thickening. CLINICAL IMPRESSION: An 87-year-old female hospitalized with aspiration pneumonia. The pa corazon has had multiple hospital admissions over the last few months because of recent fall with spina l fracture and she has had some spine surgery. The daughter tells me she also had some during the last admission at [facility] because of too much pain medication. The patient has history of dysphagia to mostly solid food. Apparently this has been a chronic problem. I had a long talk with the patient's daughter and explained to her that when she was clinically improved from a respiratory standpoint I would plan for an EGD and possible dilation. In the meantime, I would recommend neb jodi atment and IV antibiotics.
--- NOTE | 2017-12-20 14:23 | PDOC.PN ---
- Subjective Encounter Start Date: 12/20/17 Encounter Start Time: 10:45 -: old records requested/rev Pt seen and examined, chart reviewe din its entirety, this is my first visit with this patient. Case discussed with pateint, caregiver form home at bedside, and daughter onthe phone Admitted wiwith acute hypoxemic respiratory failure. concern for CHF w8th elevated BNP and/or aspiration. Recently in [facility], discharged form ther eoff of diuretics. Here with BNP of 1500 - Objective Resuscitation Status: Resuscitation Status FULL:Full Resuscitation MAR Reviewed: Yes Vital Signs & Weight: Vital Signs (12 hours) Temp Pulse Resp BP Pulse Ox 12/20/17 13:59 63 16 93 L 12/20/17 13:05 97.9 F 76 18 128/66 93 L 12/20/17 08:00 97.5 F L 85 22 H 94 L 12/20/17 07:45 97.5 F L 85 22 H 127/66 94 L 12/20/17 07:03 85 16 12/20/17 06:55 92 L 12/20/17 06:51 85 16 12/20/17 04:00 97.7 F 78 16 123/73 94 L Weight Admit Weight 102 lb 1.6 oz Weight 102 lb 1.6 oz I&O: 12/19/17 12/20/17 12/21/17 06:59 06:59 06:59 Intake Total 730 Output Total 1553 Balance -823 Result Diagrams: 12/20/17 04:46 12/20/17 04:46 Radiology Reviewed by me: Yes EKG Reviewed by me: Yes Phys Exam - Physical Examination Constitutional: NAD HEENT: PERRLA, moist MMs, sclera anicteric, oral pharynx no lesions Neck: no nodes, no JVD, supple, full ROM R posterior dullness and crackles, no wheezes, Cardiovascular: RRR, no significant murmur, no rub Gastrointestinal: soft, non-tender, no distention, positive bowel sounds Musculoskeletal: no edema, pulses present Neurological: non-focal, normal sensation, moves all 4 limbs Lymphatic: no nodes Psychiatric: normal affect, A&O x 3 Skin: no rash, normal turgor, cap refill <2 seconds Dx/Plan (1) Acute exacerbation of chronic obstructive pulmonary disease (COPD) Code(s): J44.1 - CHRONIC OBSTRUCTIVE PULMONARY DISEASE W (ACUTE) EXACERBATION Status: Acute (2) Acute hypoxemic respiratory failure Code(s): J96.01 - ACUTE RESPIRATORY FAILURE WITH HYPOXIA Status: Acute (3) Acute on chronic diastolic congestive heart failure due to valvular disease Code(s): I50.33 - ACUTE ON CHRONIC DIASTOLIC (CONGESTIVE) HEART FAILURE; I38 - ENDOCARDITIS, VALVE UNSPECIFIED Status: Acute (4) Aspiration pneumonia Code(s): J69.0 - PNEUMONITIS DUE TO INHALATION OF FOOD AND VOMIT Status: Acute (5) H/O non-Hodgkin's lymphoma Code(s): Z85.72 - PERSONAL HISTORY OF NON-HODGKIN LYMPHOMAS Status: Acute (6) Hypokalemia Code(s): E87.6 - HYPOKALEMIA Status: Acute (7) Metabolic encephalopathy Code(s): G93.41 - METABOLIC ENCEPHALOPATHY Status: Acute (8) Paroxysmal atrial fibrillation Code(s): I48.0 - PAROXYSMAL ATRIAL FIBRILLATION Status: Acute Comment: stable on Amiodarone and BB (9) Esophageal stricture Code(s): K22.2 - ESOPHAGEAL OBSTRUCTION Status: Chronic (10) Malnutrition Code(s): E46 - UNSPECIFIED PROTEIN-CALORIE MALNUTRITION Status: Chronic Qualifiers: Malnutrition type: protein-calorie malnutrition Protein-calorie malnutrition severity: moderate Qualified Code(s): E44.0 - Moderate protein- calorie malnutrition - Plan * .
[2017-12-20] MEDS ORDERED: Fleet Enema 133 ML BOT PR SCH (15:30)
[2017-12-20] MEDS ORDERED: Sodium Chloride 0.9% 500 ML IV SCH (15:30)
[2017-12-20 15:43] LABS: Actual Bicarbonate (HCO3a) 38.9 mEq/L (22-26); CO2 Tension 53.7 mmHg (35.0-45.0); Hematocrit-ABG 48.3 % (36.0-47.0); Hemoglobin (Hb) 14.5 g/dL (12.0-16.0); O2 Tension (PaO2) 67.3 mmHg (80.0-100.0); pH, Arterial 7.48 (7.35-7.45)
[2017-12-20 15:44] LABS: ALV-art Gradient 107.995 (0-20); Calcium, Ionized 1.1 mmol/L (1.12-1.30); Puncture Site RRA
--- NOTE | 2017-12-20 15:45 | PRG ---
DATE OF SERVICE: 12/20/2017 SERVICE: Pulmonary Medicine. INTERVAL HISTORY: The patient is doing really well from respiratory standpoint. Her voice is stronger today. She feels a little wobbly when she gets up. She demonstrates a little bit of asterixis. Outside of this, things seem to be moving in the right direction. Her only complaint today is pretty significant constipation. She asked for Fleet enema, but this has not been provided. PHYSICAL EXAMINATION: VITAL SIGNS: Afebrile, pulse 63, blood pressure 99/63, respirations 16, saturation 93% on 3 liters nasal cannula. GENERAL: Patient is awake, alert, in no apparent distress. LUNGS: Decent air entry. Crackles are present. There is no prolonged expiratory phase or wheezing today. There is rhonchi present, but clear with cough today. Her cough is much improved. HEENT: Normocephalic, atraumatic. Sclerae are white. HEART: Normal rate, regular. ABDOMEN: Soft, nontender, nondistended. Bowel sounds are positive. MUSCULOSKELETAL: No cyanosis or clubbing. There is no pitting in the bilateral lower extremities. NEUROLOGIC: Grossly nonfocal. LABORATORY DATA: WBC 14.2, hemoglobin 13.9, platelets 367,000. INR 1.1. Creatinine 1.13 and up trending, BUN 31 and up trending. Anion gap is elevated as is the bicarbonate. Basic metabolic profile is otherwise unremarkable. Magnesium and phosphorus fall within normal limits. Respiratory virus panel is negative. Blood cultures x2 are unremarkable. IMAGING: CT of the chest demonstrated complete atelectasis of the right middle lobe and right lower lobe. There is also atelectasis of the posterobasal distribution of the left lower lobe. Interstitial fullness is evident throughout the bilateral lung martinez. Small bilateral pleural effusions are present. Overall, this is consistent with volume overload with superimposed atelectasis and bibasilar region. ASSESSMENT: 1. Acute on chronic hypoxic respiratory failure. 2. Atelectasis of the right middle lobe and right lower lobe. 3. Atrial fibrillation, chronic. 4. Deconditioning. 5. Stricture of the upper gastrointestinal tract at this stage. 6. Chronic obstructive pulmonary disease without current exacerbation. 7. Recent chest compressions with chest pain, likely causing splinting and a decreased respiratory effort. PLAN: I am going to change her nebulized medications over to MetaNeb. I would like for her to undergo physiotherapy twice daily. We will add some Mucinex. The patient will need to get out of bed into a chair twice daily and increase as tolerated. She is going to continue working with physical therapy in order to get her strength back. Pulmonary Critical Care will continue to follow while the patient remains in this location. MTDD
[2017-12-20] MEDS: Lidocaine Patch Removal 1 EACH TOP SCH (21:34)
[2017-12-21] MEDS: Piperacillin/Tazobactam 3.375 GM in Sodium Chloride 0.9% 100 ML IVPB SCH ×5 (00:57→23:56)
[2017-12-21] MEDS: Acetaminophen 650 MG/20.3 ML UDCUP PO SCH ×5 (01:00→23:57)
[2017-12-21 06:17] LABS: ALT (SGPT) 15 U/L (8-55); AST (SGOT) 18 U/L (5-34); Albumin 3.6 g/dL (3.4-4.8); Alkaline Phosphatase 114 U/L (40-150); Anion Gap 17 mmol/L (10-20); BUN (Urea Nitrogen) 37 mg/dL (9.8-20.1); Bilirubin, Total 0.7 mg/dL (0.2-1.2); Calc. Creatinine Clearance 23 mL/min (70-130); Calcium 9.7 mg/dL (7.8-10.44); Carbon Dioxide 34 mmol/L (23-31); Chloride 95 mmol/L (98-107); Estimated GFR-MDRD 41; Globulin 2.8 g/dL (2.4-3.5); Glucose 96 mg/dL (83-110); Magnesium 2.4 mg/dL (1.6-2.6); Potassium 4.1 mmol/L (3.5-5.1); Protein, Total 6.4 g/dL (6.0-8.3); Sodium 142 mmol/L (136-145)
[2017-12-21 06:30] LABS: Band 6 % (5-11); Hemoglobin 15.2 g/dL (12.0-16.0); Lymphocytes 8 % (21-51); MDiff Complete? YES; Mean Corpuscular HGB CONC 30.5 g/dL (32.0-36.0); Mean Corpuscular Hemoglobin 31.5 pg (27.0-31.0); Mean Platelet Volume 8.8 fL (7.4-10.4); Monocytes 7 % (0-10); Neutrophil 79 % (42-75); PLT Morphology Comment Appears Increased; Platelet Count 429 thou/uL (130-400); RBC Distribution Width 16.6 % (11.5-14.5); Red Blood Cell (RBC) Count 4.82 mill/uL (4.20-5.40)
[2017-12-21] MEDS: Mometasone/Formoterol 120 PUFF INHALER INH SCH ×2 (09:08→20:01)
[2017-12-21] MEDS: Famotidine 20 MG TAB PO SCH ×2 (10:43→21:12)
[2017-12-21] MEDS: FLUoxetine HCl 20 MG CAP PO SCH (10:43)
[2017-12-21] MEDS: Aspirin 81 mg Enteric Coated Tablet PO SCH (10:44)
[2017-12-21] MEDS: Carvedilol 6.25 MG TAB PO SCH ×2 (10:44→18:40)
[2017-12-21] MEDS: predniSONE 20 MG TAB PO SCH (10:47)
[2017-12-21] MEDS: Amiodarone 200 MG TAB PO SCH (10:47)
[2017-12-21] MEDS: Polyethylene Glycol 3350 17 GM Packet PO SCH (10:49)
[2017-12-21] MEDS: Senokot S 8.6-50 MG TAB PO SCH ×2 (10:49→21:17)
[2017-12-21] MEDS: Lidocaine 5% Patch TD SCH (10:51)
[2017-12-21] MEDS ORDERED: traZODone HCl 50 MG TAB PO PRN (14:13)
--- NOTE | 2017-12-21 14:16 | PDOC.PN ---
- Subjective Encounter Start Date: 12/21/17 Encounter Start Time: 10:15 Pt looks better, breathing is better, no F/C, no N/v/D/c. daughter at bedside, update to current finding and plan Daughter states pt isnt sleeping well 10 point ROS performed and neg for all systems except as per HPI - Objective Resuscitation Status: Resuscitation Status FULL:Full Resuscitation MAR Reviewed: Yes Vital Signs & Weight: Vital Signs (12 hours) Temp Pulse Resp BP BP Pulse Ox 12/21/17 12:00 97.1 F L 65 22 H 159/73 H 96 12/21/17 10:44 161/90 H 12/21/17 09:08 74 16 12/21/17 08:59 94 L 12/21/17 08:57 74 16 12/21/17 04:00 97.7 F 77 20 163/87 H 96 Weight Admit Weight 102 lb 1.6 oz Weight 3.676 oz I&O: 12/20/17 12/21/17 12/22/17 06:59 06:59 06:59 Intake Total 730 840 260 Output Total 1553 Balance -823 840 260 Result Diagrams: 12/21/17 04:50 12/21/17 04:50 Radiology Reviewed by me: Yes EKG Reviewed by me: Yes Phys Exam - Physical Examination Constitutional: NAD HEENT: PERRLA, moist MMs, sclera anicteric, oral pharynx no lesions Neck: no nodes, no JVD, supple, full ROM coarse bilateral breath sounds, no wheezes, no rhonchi Cardiovascular: RRR, no significant murmur Gastrointestinal: soft, non-tender, no distention, positive bowel sounds Musculoskeletal: no edema, pulses present Neurological: non-focal, normal sensation, moves all 4 limbs Lymphatic: no nodes Psychiatric: normal affect, A&O x 3 Skin: no rash, normal turgor, cap refill <2 seconds Dx/Plan (1) Acute exacerbation of chronic obstructive pulmonary disease (COPD) Code(s): J44.1 - CHRONIC OBSTRUCTIVE PULMONARY DISEASE W (ACUTE) EXACERBATION Status: Acute (2) Acute hypoxemic respiratory failure Code(s): J96.01 - ACUTE RESPIRATORY FAILURE WITH HYPOXIA Status: Acute (3) Acute on chronic diastolic congestive heart failure due to valvular disease Code(s): I50.33 - ACUTE ON CHRONIC DIASTOLIC (CONGESTIVE) HEART FAILURE; I38 - ENDOCARDITIS, VALVE UNSPECIFIED Status: Acute (4) Aspiration pneumonia Code(s): J69.0 - PNEUMONITIS DUE TO INHALATION OF FOOD AND VOMIT Status: Acute (5) H/O non-Hodgkin's lymphoma Code(s): Z85.72 - PERSONAL HISTORY OF NON-HODGKIN LYMPHOMAS Status: Acute (6) Hypokalemia Code(s): E87.6 - HYPOKALEMIA Status: Acute (7) Metabolic encephalopathy Code(s): G93.41 - METABOLIC ENCEPHALOPATHY Status: Acute (8) Paroxysmal atrial fibrillation Code(s): I48.0 - PAROXYSMAL ATRIAL FIBRILLATION Status: Acute Comment: stable on Amiodarone and BB (9) Esophageal stricture Code(s): K22.2 - ESOPHAGEAL OBSTRUCTION Status: Chronic (10) Malnutrition Code(s): E46 - UNSPECIFIED PROTEIN-CALORIE MALNUTRITION Status: Chronic Qualifiers: Malnutrition type: protein-calorie malnutrition Protein-calorie malnutrition severity: moderate Qualified Code(s): E44.0 - Moderate protein- calorie malnutrition - Plan cont current plan of care, plan discussed w/ family, continue antibiotics, PT/OT , director of social services, incentive spirometry, out of bed/ambulate, DVT proph w/ lovenox * .
--- NOTE | 2017-12-21 14:36 | PRG ---
DATE OF SERVICE: 12/21/2017 SUBJECTIVE: She is sitting at the bedside, doing well. She is less short of breath. OBJECTIVE: VITAL SIGNS: Sats 95% on 3 liters, blood pressure 160/90, respirations 18. CHEST: Chest reveals decreased breath sounds without any wheezing. CARDIAC: Normal S1 and S2. ABDOMEN: Soft. No masses. IMPRESSION: Respiratory failure, severe deconditioning, azotemia. LABORATORY: White count 18,000, H and H 15 and 49, platelet count normal. Someone had ordered a blo od gas; pO2 was 67, pCO2 50, pH 7.48, consistent with CO2 retention. Continue neb treatments, antibiotics, and prednisone. We will follow.
[2017-12-21] MEDS: Lidocaine Patch Removal 1 EACH TOP SCH (21:17)
--- NOTE | 2017-12-21 22:47 | PRG ---
DATE OF SERVICE: 12/21/2017 SUBJECTIVE: This is an 87-year-old female with recent aspiration and was hospitalized. Nacho chavez has been seen by Pulmonary and is on IV antibiotics. She is actually feeling better today. She is not short-winded and she is not coughing. She is tolerating pureed diet. The patient was told to h sienan esophageal stricture. The patient's daughter, Delma, brought in a modified barium swallow keesha dy done recently. The swallow study does show no aspiration, but does show a distal esophageal stric ture. PHYSICAL EXAMINATION: GENERAL: Revealed a very fragile looking female, but today she looks better. She is not short-winde d. VITAL SIGNS: Stable. CARDIOVASCULAR: First and second heart sounds normal. LUNGS: Bilateral rales. ABDOMEN: Soft. Nontender. No organomegaly or masses. CLINICAL IMPRESSION: Esophageal stricture, dysphagia. PLAN: EGD and dilation on Saturday.
[2017-12-22] MEDS ORDERED: Loperamide HCl 2 MG CAP PO PRN ×2 (04:56)
[2017-12-22] MEDS: Piperacillin/Tazobactam 3.375 GM in Sodium Chloride 0.9% 100 ML IVPB SCH (05:38)
[2017-12-22] MEDS: Mometasone/Formoterol 120 PUFF INHALER INH SCH ×2 (07:15→20:09)
[2017-12-22] MEDS: Acetaminophen 650 MG/20.3 ML UDCUP PO SCH ×3 (07:29→18:08)
[2017-12-22 08:12] LABS: #Lymphocytes 0.7 thou/uL (1.20-3.40); #Monocytes 1.3 thou/uL (0.11-0.59); #Neutrophils 10.5 thou/uL (1.40-6.50); %Basophils 0.2 % (0.0-1.0); %Eosinophils 0.3 % (0.0-10.0); %Lymphocytes 5.7 % (21.0-51.0); %Neutrophils 83.7 % (42.0-75.0); Hemoglobin 15.8 g/dL (12.0-16.0); Mean Corpuscular HGB CONC 30.5 g/dL (32.0-36.0); Mean Corpuscular Hemoglobin 31.7 pg (27.0-31.0); Mean Platelet Volume 8.3 fL (7.4-10.4); Platelet Count 457 thou/uL (130-400); RBC Distribution Width 16.5 % (11.5-14.5); Red Blood Cell (RBC) Count 4.99 mill/uL (4.20-5.40); White Blood Cell (WBC) Count 12.5 thou/uL (4.8-10.8)
[2017-12-22 08:32] LABS: Anion Gap 15 mmol/L (10-20); BUN (Urea Nitrogen) 28 mg/dL (9.8-20.1); Calc. Creatinine Clearance 0 mL/min (70-130); Calcium 9.8 mg/dL (7.8-10.44); Carbon Dioxide 34 mmol/L (23-31); Chloride 98 mmol/L (98-107); Estimated GFR-MDRD 52; Glucose 88 mg/dL (83-110); Magnesium 2.4 mg/dL (1.6-2.6); Potassium 4.1 mmol/L (3.5-5.1); Sodium 143 mmol/L (136-145)
[2017-12-22] MEDS: Carvedilol 6.25 MG TAB PO SCH ×2 (09:56→18:09)
[2017-12-22] MEDS: FLUoxetine HCl 20 MG CAP PO SCH (09:56)
[2017-12-22] MEDS: Amiodarone 200 MG TAB PO SCH (09:56)
[2017-12-22] MEDS: Famotidine 20 MG TAB PO SCH ×2 (09:56→20:45)
[2017-12-22] MEDS: predniSONE 20 MG TAB PO SCH (10:08)
[2017-12-22] MEDS: Aspirin 81 mg Enteric Coated Tablet PO SCH (10:08)
[2017-12-22] MEDS: Polyethylene Glycol 3350 17 GM Packet PO SCH (10:09)
[2017-12-22] MEDS: Lidocaine 5% Patch TD SCH (10:09)
[2017-12-22] MEDS: Senokot S 8.6-50 MG TAB PO SCH ×2 (10:09→20:45)
--- NOTE | 2017-12-22 12:28 | PDOC.PN ---
- Subjective Encounter Start Date: 12/22/17 Encounter Start Time: 12:30 Subjective: f/u for suspected aspiration PNA on current Augmentin and Prednisone. -: COPD on chronic O2 and overall feeling better. Sat in chair and ate pureed -: diet without difficulty. Still weak and wanting to sleep more. - Objective Resuscitation Status: Resuscitation Status FULL:Full Resuscitation MAR Reviewed: Yes Vital Signs & Weight: Vital Signs (12 hours) Temp Pulse Resp BP BP Pulse Ox 12/22/17 09:56 138/72 12/22/17 07:15 64 16 12/22/17 06:59 96 12/22/17 06:57 64 16 12/22/17 05:52 85 175/100 H 12/22/17 05:45 96.8 F L 77 16 160/90 H 99 12/22/17 02:29 98 Weight Admit Weight 102 lb 1.6 oz Weight 3.676 oz I&O: 12/21/17 12/22/17 12/23/17 06:59 06:59 06:59 Intake Total 840 620 Balance 840 620 Result Diagrams: 12/22/17 08:01 12/22/17 08:01 Additional Labs: Microbiology 12/19/17 13:35 Nasopharyngeal swab Respiratory Panel (PCR) - Final 12/18/17 17:22 Venous blood - Right Hand Blood Culture - Preliminary NO GROWTH AT 48 HOURS 12/18/17 17:22 Venous blood - Left Hand Blood Culture - Preliminary NO GROWTH AT 48 HOURS Laboratory Tests 12/18/17 12/19/17 12/20/17 17:21 04:42 04:46 WBC 13.6 H 16.9 H Creatinine 1.13 H 12/20/17 12/21/17 12/21/17 04:46 04:50 04:50 WBC 14.2 H 18.0 H Creatinine 1.24 H EKG Reviewed by me: Yes (Tele - SR in 70's) Phys Exam - Physical Examination alert, answers questions HEENT: PERRLA, oral pharynx no lesions Neck: no JVD, supple coarse sounds in bases, few scattered rhonci Cardiovascular: RRR Gastrointestinal: soft, non-tender, no distention, positive bowel sounds Musculoskeletal: no edema, pulses present Neurological: normal sensation, moves all 4 limbs Psychiatric: A&O x 3 Skin: normal turgor, cap refill <2 seconds Dx/Plan (1) Acute exacerbation of chronic obstructive pulmonary disease (COPD) Code(s): J44.1 - CHRONIC OBSTRUCTIVE PULMONARY DISEASE W (ACUTE) EXACERBATION Status: Acute Comment: Stabilizing, continue Prednisone 40mg daily, continue Augmentin 500mg BID, Desmond Goins (2) Acute hypoxemic respiratory failure Code(s): J96.01 - ACUTE RESPIRATORY FAILURE WITH HYPOXIA Status: Acute Comment: Stabilizing, see above #1 (3) Aspiration pneumonia Code(s): J69.0 - PNEUMONITIS DUE TO INHALATION OF FOOD AND VOMIT Status: Suspected Qualifiers: Laterality: bilateral Comment: Continue Augmentin, aspiration precautions, Pureed diet (4) Hypokalemia Code(s): E87.6 - HYPOKALEMIA Status: Acute Comment: Resolved (5) Metabolic encephalopathy Code(s): G93.41 - METABOLIC ENCEPHALOPATHY Status: Acute Comment: Resolving (6) Paroxysmal atrial fibrillation Code(s): I48.0 - PAROXYSMAL ATRIAL FIBRILLATION Status: Acute Comment: stable on Amiodarone and BB, current SR (7) Esophageal stricture Code(s): K22.2 - ESOPHAGEAL OBSTRUCTION Status: Chronic Comment: Plan for EGD and ? dilation 12/23/17 (8) Malnutrition Code(s): E46 - UNSPECIFIED PROTEIN-CALORIE MALNUTRITION Status: Chronic Qualifiers: Malnutrition type: protein-calorie malnutrition Protein-calorie malnutrition severity: moderate Qualified Code(s): E44.0 - Moderate protein- calorie malnutrition Comment: Boost supplements, Pureed diet - Plan plan discussed w/ family, continue antibiotics, PT/OT, manager social services, speech therapy, respiratory therapy, out of bed/ambulate, DVT proph w/SCDs Stable overall -: Continue ASA 81mg daily -: Continue Amiodarone -: Plan for EGD in am 12/23/17 -: Continue Augmentin and Prednisone * AM lab: CBC
--- NOTE | 2017-12-22 15:33 | PRG ---
DATE OF SERVICE: 12/22/2017 SUBJECTIVE: Jocelyn Ramirez is a very pleasant 87-year-old female hospitalized because of aspiration p neumonia. The patient is improving dramatically. She is not short-winded. She is not coughing anym ore. She is overall feeling better. The patient has had barium swallow going a couple of months ago . The patient had difficulty swallowing solids and she is on a pureed diet. She has no abdominal pa in, no nausea, no vomiting. OBJECTIVE: VITAL SIGNS: Afebrile, pulse rate is 64, blood pressure 138/72. CARDIOVASCULAR SYSTEM: First and second heart sounds normal. LUNGS: Clear to auscultation. ABDOMEN: Soft to palpate. No organomegaly. No tenderness. No masses. CLINICAL IMPRESSION: Dysphagia - esophageal stricture. PLAN: EGD and dilation tomorrow.
--- NOTE | 2017-12-22 17:31 | PRG ---
DATE OF SERVICE: 12/21/2017 SUBJECTIVE: She was sitting on the bedside of the bed. She denies any pain or shortness of breath. She remains weak. Sputum is relatively clear. OBJECTIVE: VITAL SIGNS: Sats are 96 on 3 liters, blood pressure 130/72, pulse 60, respirations 18. CHEST: Minimal crackles. CARDIAC: Normal S1-S2. No gallops. ABDOMEN: Soft. No masses. Electrolytes are normal. White count 12,000, H&H 15 and 48. IMPRESSION: Respiratory failure, congestive heart failure, chronic obstructive pulmonary disease, ab normal x-ray, elevated hemidiaphragm, left chest. PLAN: Continue PT, antibiotics, neb treatments, consider deescalating to oral antibiotics. We will follow.
--- NOTE | 2017-12-22 18:29 | CON ---
DATE OF CONSULTATION: 12/22/2017 REASON FOR CONSULTATION: Diastolic heart failure and atrial fibrillation. HISTORY OF PRESENT ILLNESS: Ms. Ramirez is a very pleasant 87-year-old white female who comes to the hospital for dysphagia and shortness of breath. She has a significant history of diastolic heart fa ilure and atrial fibrillation. She has been followed by [facility] in the past. She had an adm ission there from 11/28 to 12/09 that was a little traumatic for her. She had a T12 compression frac ture and pain medications made her have a code blue. She had chest compressions, had to be intubated and placed on mechanical ventilation. Echocardiogram at that time showed normal LV function with di astolic heart failure. She had a stress test to evaluate for ischemia which was negative and then sh scott underwent surgery for her T12 compression fracture successfully. She was sent to rehab, had some i ssues with dysphagia and aspirated, so she is back here for shortness of breath and exacerbation of d iastolic heart failure. She has been diuresing well. Her BNP was about 1500 on admission and her br eathing is much better. She is scheduled to have an esophageal dilatation tomorrow by Dr. Hutson. PAST MEDICAL HISTORY: 1. Chronic atrial fibrillation. 2. Non-Hodgkin's lymphoma. 3. Chronic diastolic heart failure. 4. Chronic obstructive pulmonary disease. 5. Gastroesophageal reflux disease. 6. Hypertension. 7. Peptic ulcer disease in the past secondary to NSAID abuse. 8. Macular degeneration. 9. Depression. PAST SURGICAL HISTORY: 1. Gastric surgery in the past. OUTPATIENT MEDICATIONS: 1. Prozac 60 mg a day. 2. Valtrex. 3. Bentyl. 4. Lomotil as needed. 5. Aspirin 81 daily. 6. Albuterol p.r.n. 7. Carvedilol 25 mg b.i.d. 8. Amiodarone 200 mg b.i.d. 9. [place] p.r.n. 10. Lidocaine patch. 11. Nystatin. ALLERGIES: SULFA DRUGS, FLAGYL, and TRAMADOL. SOCIAL HISTORY: Former smoker, quit in 1995. No alcohol or drug use. FAMILY HISTORY: Noncontributory. REVIEW OF SYSTEMS: Twelve point review of systems was done and is all negative unless stated in the history of present illness. PHYSICAL EXAMINATION: VITAL SIGNS: Temperature 96.8, pulse 80, respiration rate 18, satting 96% on 3 liters. She is on ho me O2, blood pressure 138/72. GENERAL: Awake, alert, oriented x3, in no distress. HEENT: Normocephalic, atraumatic. She has very limited vision. NECK: Supple, no JVD. LUNGS: Have diminished breath sounds bilaterally. CARDIOVASCULAR: As irregularly irregular. Heart rate in the 60s-80s, grade 2/6 systolic murmur in t he right upper sternal more. ABDOMEN: Soft, positive bowel sounds. EXTREMITIES: No edema. SKIN: Warm and dry. LABORATORY WORK: Reviewed. White count of 12, hemoglobin 15, hematocrit 52, platelet count of 457. Coags were normal. ABG was reviewed. Chemistries were reviewed. GFR 52, creatinine is 1.1 after d iuresis it was up to 1.24. BNP was 896, last time it was looked at 1500 on admission. EKG was reviewed. Telemetry was reviewed. CT of the chest was reviewed. ASSESSMENT AND PLAN: 1. Acute on chronic diastolic heart failure, much improved, closer to euvolemia now, good moment to do esophageal dilatation as scheduled. 2. Chronic atrial fibrillation. She has really never failed anticoagulation. She was placed on Cou madin in the past several years ago and there was no good doses that could be achieved to maintain an adequate INR, so she was discontinued on her Coumadin and started on aspirin alone. At that time, t here was no availability for the new NOACs. On talking with her daughter, she has never had any blee ding problems except for a time in 1995 when her was really sick and she was not eating well and taking several ibuprofen daily and she was diagnosed with peptic ulcer disease. She has not had that problem since she stopped using NSAIDs. She may be a candidate for full anticoagulation with on e of the new NOACs; however, at this time it is not a good moment to start given her scheduled esopha geal dilatation tomorrow and it may take a few weeks to heal before we can even start them. 3. Dys[address]. Dr. Hutson to do an endoscopy tomorrow with dilatation as above. 4. Chronic obstructive pulmonary disease and possible RV dysfunction from this. Stable at this time , close to euvolemic. Thank you for letting us to participate in the care of this patient. We will follow.
[2017-12-22] MEDS: Melatonin 3 MG TAB PO PRN (20:45)
[2017-12-22] MEDS: Amoxicillin/Potassium Clav 500 MG TAB PO SCH (20:45)
[2017-12-22] MEDS: Lidocaine Patch Removal 1 EACH TOP SCH (20:45)
[2017-12-23] MEDS: Acetaminophen 650 MG/20.3 ML UDCUP PO SCH ×4 (00:11→18:08)
[2017-12-23] MEDS: Mometasone/Formoterol 120 PUFF INHALER INH SCH ×3 (08:01→19:20)
[2017-12-23] MEDS: FLUoxetine HCl 20 MG CAP PO SCH (08:32)
[2017-12-23] MEDS: predniSONE 20 MG TAB PO SCH (08:32)
[2017-12-23] MEDS: Amoxicillin/Potassium Clav 500 MG TAB PO SCH ×2 (08:32→20:51)
[2017-12-23] MEDS: Aspirin 81 mg Enteric Coated Tablet PO SCH (08:32)
[2017-12-23] MEDS: Famotidine 20 MG TAB PO SCH ×2 (08:32→20:51)
[2017-12-23] MEDS: Carvedilol 6.25 MG TAB PO SCH ×2 (08:32→18:08)
[2017-12-23] MEDS: Amiodarone 200 MG TAB PO SCH (08:32)
[2017-12-23] MEDS: Polyethylene Glycol 3350 17 GM Packet PO SCH (08:33)
[2017-12-23] MEDS: Senokot S 8.6-50 MG TAB PO SCH ×2 (08:33→20:52)
[2017-12-23] MEDS: Lidocaine 5% Patch TD SCH (08:33)
[2017-12-23 10:04] LABS: Anisocytosis SLIGHT = 6-15 cells (100X) (0-5/hpf); Hemoglobin 16.4 g/dL (12.0-16.0); MDiff Complete? YES; Mean Corpuscular Hemoglobin 31.1 pg (27.0-31.0); Mean Platelet Volume 8.3 fL (7.4-10.4); PLT Morphology Comment Appears Increased; Platelet Count 418 thou/uL (130-400); RBC Distribution Width 16.3 % (11.5-14.5); Red Blood Cell (RBC) Count 5.26 mill/uL (4.20-5.40); White Blood Cell (WBC) Count 11.4 thou/uL (4.8-10.8)
[2017-12-23] MEDS ORDERED: Lidocaine 1% PF 5 ML VIAL ONE (12:13)
--- NOTE | 2017-12-23 13:33 | OP ---
DATE OF PROCEDURE: 12/23/2017 SURGEON: Stanton Hutson M.D. OPERATIVE PROCEDURE: 1. Esophagogastroduodenoscopy. 2. Esophageal balloon dilation to stage III with no assistance. The balloon was brought back across the GE junction without any resistance. 3. Balloon dilation of the pyloric stenosis to stage 1-1/2. 4. Passage of a 46 [place] dilator without any resistance. PREOPERATIVE DIAGNOSIS: Dysphagia. POSTOPERATIVE DIAGNOSES: 1. Normal esophageal mucosa. 2. Distal esophageal ring, nonobstructing. 3. Pyloric stenosis, the scope could not be advanced past the pylorus into the duodenal bulb. PROCEDURE IN DETAIL: The patient was placed on her left lateral position and was given sedation by Anesthesia Department. Also, the throat was anesthetized with Cetacaine spray. A Pentax video gastroscope under direct vision was passed down the oropharynx, past the upper esophageal sphincter into the distal esophagus. The esophageal mucosa appears normal. There were no intrinsic lesions seen. At the GE junction, the patient found to have an esophageal ring which was nonobstructing. The scope was advanced into the stomach without any resistance. Retroflexion failed to show any lesions in the fundus or cardia. The gastric body, no lesions. The gastric antrum, no lesions. The pyloric opening was very tight and I could not advance the scope into the duodenal bulb. A Bard balloon size 15-18 mm was placed at the pyloric opening under endoscopic guidance and was inflated to stage I for 2 minutes. Then the procedure was repeated to stage 1-1/2 for another 1 minute. Following dilation mucosal friability and mild oozing of blood seen. I was able to advance the scope into the duodenal bulb and descending duodenum without difficulty. The scope was withdrawn. Initially, the Bard balloon was inflated to stage I across the GE junction and was brought into the esophagus without any difficulty. This was inflated to stage II and to stage III. Although the patient complains of dysphagia, there was no esophageal narrowing seen.. After passage of a 46-Polish Fulton dilator after the above maneuvers. The dilator was passed down with no resistance. RECOMMENDATIONS: 1. Start the patient on mechanical soft diet. 2. Advance diet to regular diet tomorrow. [facility]
--- NOTE | 2017-12-23 17:40 | PDOC.CTH ---
Cardiology Progress Note - Subjective She had her EGD and dilatation. - Objective Vital Signs Temp Pulse Pulse Resp BP BP Pulse Ox 12/23/17 16:51 98 F 89 16 118/62 98 12/23/17 15:00 88 165/75 H 12/23/17 14:27 82 22 H 95 12/23/17 13:29 96.4 F L 73 18 132/79 95 12/23/17 08:30 97.7 F 78 18 97 12/23/17 08:28 80 20 98 12/23/17 08:26 97.7 F 78 18 169/88 H 97 Pulse Ox Pulse Ox Pulse Ox 12/23/17 16:51 12/23/17 15:00 88 L 91 L 90 L 12/23/17 14:27 12/23/17 13:29 12/23/17 08:30 12/23/17 08:28 12/23/17 08:26 Admit Weight 102 lb 1.6 oz Weight 3.676 oz 12/22/17 12/23/17 12/24/17 06:59 06:59 06:59 Intake Total 620 720 Balance 620 720 - Physical Examination General/Neuro: NAD Neck: no JVD present Lungs: CTA, unlabored respirations Heart: RRR Abdomen: NT/ND Extremities: + edema B (no edema) - Telemetry Telemetry Rhythm: NSR - Labs Result Diagrams: 12/23/17 08:37 12/22/17 08:01 Troponin/CKMB CK-MB (CK-2) 1.2 ng/mL (0-6.6) 12/18/17 17:21 Troponin I 0.024 ng/mL (< 0.028) 12/18/17 23:00 - Assessment/Plan 1. Acute on chronic diastolic heart failure. 2. Chronic afib 3. Dysphagia 4. COPD. PLAN: - Continue current meds for now. - I spoke with Dr. Layne about starting full anticoagulation and he states it shoud be safe for now. Will plan on starting about 2 days from her dilatation. - Will try Eliquis 2.5 mg BID. - Continue other meds.
[2017-12-23] MEDS: Potassium Chloride 10 MEQ TAB PO SCH (18:08)
--- NOTE | 2017-12-23 20:44 | PDOC.PN ---
- Subjective Encounter Start Date: 12/23/17 Encounter Start Time: 13:00 Subjective: f/u s/p EGD with esophageal and pyloric stenosis with dilation. -: Recovering without complications. - Objective Resuscitation Status: Resuscitation Status FULL:Full Resuscitation MAR Reviewed: Yes Vital Signs & Weight: Vital Signs (12 hours) Temp Pulse Pulse Resp BP BP BP 12/23/17 19:19 89 20 12/23/17 18:08 130/60 12/23/17 16:51 98 F 89 16 118/62 12/23/17 15:00 88 165/75 H 12/23/17 14:27 82 22 H 12/23/17 13:29 96.4 F L 73 18 132/79 Pulse Ox Pulse Ox Pulse Ox Pulse Ox 12/23/17 19:19 93 L 12/23/17 18:08 12/23/17 16:51 98 12/23/17 15:00 88 L 91 L 90 L 12/23/17 14:27 95 12/23/17 13:29 95 Weight Admit Weight 102 lb 1.6 oz Weight 3.676 oz I&O: 12/22/17 12/23/17 12/24/17 06:59 06:59 06:59 Intake Total 620 720 Balance 620 720 Result Diagrams: 12/23/17 08:37 12/22/17 08:01 Radiology Reviewed by me: Yes (EGD - esophageal ring, pyloric stenosis) EKG Reviewed by me: Yes (Tele - SR) Phys Exam - Physical Examination sleepy HEENT: PERRLA, oral pharynx no lesions Neck: no JVD, supple Respiratory: no wheezing, clear to auscultation bilateral Cardiovascular: RRR Gastrointestinal: soft, non-tender, no distention, positive bowel sounds Musculoskeletal: pulses present, edema present Neurological: normal sensation, moves all 4 limbs Skin: normal turgor, cap refill <2 seconds Dx/Plan (1) Acute exacerbation of chronic obstructive pulmonary disease (COPD) Code(s): J44.1 - CHRONIC OBSTRUCTIVE PULMONARY DISEASE W (ACUTE) EXACERBATION Status: Acute Comment: Stabilizing, continue Prednisone 40mg daily, continue Augmentin 500mg BID, Duonebs, Dulera (2) Acute hypoxemic respiratory failure Code(s): J96.01 - ACUTE RESPIRATORY FAILURE WITH HYPOXIA Status: Acute Comment: Stabilizing, see above #1 (3) Aspiration pneumonia Code(s): J69.0 - PNEUMONITIS DUE TO INHALATION OF FOOD AND VOMIT Status: Suspected Qualifiers: Laterality: bilateral Comment: Continue Augmentin, aspiration precautions, mech soft diet (4) Hypokalemia Code(s): E87.6 - HYPOKALEMIA Status: Acute Comment: Resolved (5) Metabolic encephalopathy Code(s): G93.41 - METABOLIC ENCEPHALOPATHY Status: Acute Comment: Resolving (6) Paroxysmal atrial fibrillation Code(s): I48.0 - PAROXYSMAL ATRIAL FIBRILLATION Status: Acute Comment: stable on Amiodarone and BB, current SR, likely start Eliquis in 48h (7) Esophageal stricture Code(s): K22.2 - ESOPHAGEAL OBSTRUCTION Status: Chronic Comment: s/p esophageal dilation 12/23/17 (8) Malnutrition Code(s): E46 - UNSPECIFIED PROTEIN-CALORIE MALNUTRITION Status: Chronic Qualifiers: Malnutrition type: protein-calorie malnutrition Protein-calorie malnutrition severity: moderate Qualified Code(s): E44.0 - Moderate protein- calorie malnutrition Comment: Boost supplements, mech soft diet - Plan PT/OT, social and political studies professor, speech therapy, out of bed/ambulate, DVT proph w/SCDs Stable overall -: Continue supportive mgmt -: PT for mobilization, only taking 2-3 steps with assist -: Continue Augmentin and Prednisone -: Mech soft diet, advance as tolerated * .
[2017-12-23] MEDS: Lidocaine Patch Removal 1 EACH TOP SCH (20:51)
[2017-12-24] MEDS: Acetaminophen 650 MG/20.3 ML UDCUP PO SCH ×4 (05:36→17:53)
[2017-12-24] MEDS: Mometasone/Formoterol 120 PUFF INHALER INH SCH ×2 (07:52→20:15)
[2017-12-24] MEDS: Amoxicillin/Potassium Clav 500 MG TAB PO SCH ×2 (08:29→21:32)
[2017-12-24] MEDS: Lidocaine 5% Patch TD SCH (08:29)
[2017-12-24] MEDS: Furosemide 20 MG TAB PO SCH (08:30)
[2017-12-24] MEDS: Aspirin 81 mg Enteric Coated Tablet PO SCH (08:30)
[2017-12-24] MEDS: Famotidine 20 MG TAB PO SCH ×2 (08:30→21:32)
[2017-12-24] MEDS: predniSONE 20 MG TAB PO SCH (08:30)
[2017-12-24] MEDS: FLUoxetine HCl 20 MG CAP PO SCH (08:30)
[2017-12-24] MEDS: Polyethylene Glycol 3350 17 GM Packet PO SCH (08:31)
[2017-12-24] MEDS: Senokot S 8.6-50 MG TAB PO SCH ×2 (08:31→21:32)
[2017-12-24] MEDS: Carvedilol 6.25 MG TAB PO SCH ×2 (08:31→17:53)
[2017-12-24] MEDS: Potassium Chloride 10 MEQ TAB PO SCH ×2 (08:31→17:54)
--- NOTE | 2017-12-24 10:58 | RAD ---
MODIFIED BARIUM SWALLOW WITH SPEECH THERAPIST: History: Dysphagia oropharyngeal phase. Feeding difficulties. FINDINGS: No laryngeal penetration, aspiration, persistent pooling of contrast in the vallecula or pyriform sin uses are seen. IMPRESSION: Please see recommendations of the speech therapist. POS: NEHA
--- NOTE | 2017-12-24 15:11 | PDOC.PN ---
- Subjective Encounter Start Date: 12/24/17 Encounter Start Time: 14:45 Subjective: f/u for acute COPD exacerbation and hypoxic resp failure. Also -: s/p EGD with esophageal dilation tolerating po intake currently on [facility] -: soft diet. Overall feeling better. - Objective Resuscitation Status: Resuscitation Status FULL:Full Resuscitation MAR Reviewed: Yes Vital Signs & Weight: Vital Signs (12 hours) Temp Pulse Resp BP BP Pulse Ox 12/24/17 14:03 80 20 94 L 12/24/17 12:14 98.3 F 85 16 153/81 H 97 12/24/17 08:31 108/60 12/24/17 08:30 97.5 F L 88 16 98 12/24/17 08:00 97.5 F L 88 16 108/60 98 12/24/17 07:49 86 20 96 12/24/17 04:00 97.9 F 77 16 131/71 98 Weight Admit Weight 102 lb 1.6 oz Weight 3.676 oz I&O: 12/23/17 12/24/17 12/25/17 06:59 06:59 06:59 Intake Total 720 Balance 720 Result Diagrams: 12/23/17 08:37 12/22/17 08:01 EKG Reviewed by me: Yes (Tele - SR) Phys Exam - Physical Examination Constitutional: NAD smiles HEENT: PERRLA, oral pharynx no lesions Neck: no JVD, supple Respiratory: no wheezing Cardiovascular: RRR Gastrointestinal: soft, non-tender, no distention, positive bowel sounds Musculoskeletal: no edema, pulses present Neurological: normal sensation, moves all 4 limbs Psychiatric: A&O x 3 Skin: normal turgor, cap refill <2 seconds Dx/Plan (1) Acute exacerbation of chronic obstructive pulmonary disease (COPD) Code(s): J44.1 - CHRONIC OBSTRUCTIVE PULMONARY DISEASE W (ACUTE) EXACERBATION Status: Acute Comment: Stabilizing, continue Prednisone 40mg daily, continue Augmentin 500mg BID, Desmond Goins (2) Acute hypoxemic respiratory failure Code(s): J96.01 - ACUTE RESPIRATORY FAILURE WITH HYPOXIA Status: Acute Comment: Stabilizing, see above #1 (3) Aspiration pneumonia Code(s): J69.0 - PNEUMONITIS DUE TO INHALATION OF FOOD AND VOMIT Status: Suspected Qualifiers: Laterality: bilateral Comment: Continue Augmentin, aspiration precautions, mech soft diet (4) Hypokalemia Code(s): E87.6 - HYPOKALEMIA Status: Acute Comment: Resolved (5) Metabolic encephalopathy Code(s): G93.41 - METABOLIC ENCEPHALOPATHY Status: Acute Comment: Resolving (6) Paroxysmal atrial fibrillation Code(s): I48.0 - PAROXYSMAL ATRIAL FIBRILLATION Status: Acute Comment: stable on Amiodarone and BB, current SR, likely start Eliquis in 48h (7) Esophageal stricture Code(s): K22.2 - ESOPHAGEAL OBSTRUCTION Status: Chronic Comment: s/p esophageal dilation 12/23/17 (8) Malnutrition Code(s): E46 - UNSPECIFIED PROTEIN-CALORIE MALNUTRITION Status: Chronic Qualifiers: Malnutrition type: protein-calorie malnutrition Protein-calorie malnutrition severity: moderate Qualified Code(s): E44.0 - Moderate protein- calorie malnutrition Comment: Boost supplements, mech soft diet - Plan plan discussed w/ family, continue antibiotics, PT/OT, social media intern, speech therapy, respiratory therapy, out of bed/ambulate, DVT proph w/SCDs Stable overall -: Continue Augmentin and Prednisone -: OOB with PT -: Monitor po intake with mech soft diet -: Likely d/c to SNF in am * .
[2017-12-24] MEDS: Lidocaine Patch Removal 1 EACH TOP SCH (21:32)
--- NOTE | 2017-12-24 23:09 | PDOC.CTH ---
Cardiology Progress Note - Subjective She is doing well. No new issues. - Objective Vital Signs Temp Pulse Resp BP BP Pulse Ox 12/24/17 20:14 83 18 93 L 12/24/17 19:32 98.0 F 83 18 133/63 94 L 12/24/17 17:53 144/89 H 12/24/17 17:00 98.3 F 91 16 144/89 H 96 12/24/17 14:03 80 20 94 L 12/24/17 12:14 98.3 F 85 16 153/81 H 97 Admit Weight 102 lb 1.6 oz Weight 3.676 oz 12/23/17 12/24/17 12/25/17 06:59 06:59 06:59 Intake Total 720 1090 Balance 720 1090 - Physical Examination General/Neuro: alert & oriented x3, NAD Neck: no JVD present Lungs: unlabored respirations Heart: other: (irreg) Abdomen: NT/ND Extremities: other: (no edema.) - Telemetry Telemetry Rhythm: Afib - Labs Result Diagrams: 12/23/17 08:37 12/22/17 08:01 Troponin/CKMB CK-MB (CK-2) 1.2 ng/mL (0-6.6) 12/18/17 17:21 Troponin I 0.024 ng/mL (< 0.028) 12/18/17 23:00 - Assessment/Plan 1. Acute on chronic diastolic heart failure. 2. Chronic afib 3. Dysphagia 4. COPD. PLAN: - Continue current meds for now. - Will start Eliquis tomorrow.
[2017-12-25] MEDS: Acetaminophen 650 MG/20.3 ML UDCUP PO SCH ×3 (00:16→12:46)
[2017-12-25] MEDS: Mometasone/Formoterol 120 PUFF INHALER INH SCH (07:02)
[2017-12-25] MEDS ORDERED: Apixaban 5 MG TAB PO SCH (09:00)
[2017-12-25] MEDS: Carvedilol 6.25 MG TAB PO SCH (09:21)
[2017-12-25] MEDS: Potassium Chloride 10 MEQ TAB PO SCH (09:21)
[2017-12-25] MEDS: Amoxicillin/Potassium Clav 500 MG TAB PO SCH (09:21)
[2017-12-25] MEDS: Aspirin 81 mg Enteric Coated Tablet PO SCH (09:21)
[2017-12-25] MEDS: FLUoxetine HCl 20 MG CAP PO SCH (09:21)
[2017-12-25] MEDS: predniSONE 20 MG TAB PO SCH (09:21)
[2017-12-25] MEDS: Famotidine 20 MG TAB PO SCH (09:21)
[2017-12-25] MEDS: Furosemide 20 MG TAB PO SCH (09:22)
[2017-12-25] MEDS: Lidocaine 5% Patch TD SCH (09:22)
[2017-12-25] MEDS: Polyethylene Glycol 3350 17 GM Packet PO SCH (09:23)
[2017-12-25] MEDS: Senokot S 8.6-50 MG TAB PO SCH (09:23)
--- NOTE | 2017-12-25 12:33 | DIS ---
DATE OF ADMISSION: 12/18/2017 DATE OF DISCHARGE: 12/25/2017 DISCHARGE DIAGNOSES: 1. Acute hypoxic respiratory failure, resolved. 2. Acute exacerbation of chronic obstructive pulmonary disease, improved. 3. Aspiration pneumonia with suspected gram-positive cocci, improved. 4. Acute metabolic encephalopathy, multifactorial, resolving. 5. Paroxysmal atrial fibrillation, current sinus mechanism, anticoagulation with Eliquis. 6. Esophageal stricture, status post dilation. 7. Non-Hodgkin's lymphoma. 8. Hypertension, stable. 9. T12 compression fracture, status post back surgery. CONSULTATIONS: Dr. Hutson with GI Service. Dr. Freeman with Cardiology service. Dr. Alejandra with lmonology Service. PERTINENT LABORATORY AND X-RAY FINDINGS: Potassium ranged between 3.0-4.1, creatinine ranged between 0.77-1.24 with estimated GFR ranging between 41-71. Lactic acid level 1.1. Troponin I negative x3. BNP 1510. Albumin 3.5. TSH 3.07. Vitamin B12 level 947, folate 24.8. CBC showed a white blood c ell count ranged between 11.4-18. Hemoglobin ranged between 13.9-16.4. Blood cultures x2 from 12/18 showed no growth at 5 days. Respiratory panel, PCR, dated 12/19/2017, negative. Urine culture dated 12/17/2017 showed no growth at [address] of the brain without contrast dated 12/18/2017 sh owed no acute intracranial process. Portable chest x-ray dated 12/18/2017 showed bilateral pleural e ffusions, right greater than left. Mild vascular prominence. Bibasilar atelectasis with consolidati on. A 2D transthoracic echocardiogram dated 12/22/2017 showed ejection fraction of 50%-55%. Grade 2 /3 diastolic dysfunction. Moderate left atrial enlargement. CT of the chest dated 12/19/2017 showed [id number] right pleural effusion. Right basilar atelectasis and/consolidation with associat ed mild left basilar atelectasis. Chronic changes with diffuse interstitial thickening. Modified ba rium swallow study dated 12/24/2017 showed no laryngeal penetration, aspiration, or persistent poolin g of contrast in the vallecula or piriform sinuses. HOSPITAL COURSE: Patient was initially admitted to the telemetry unit after presenting with increase d shortness of breath in the context of chronic obstructive pulmonary disease and chronic diastolic c ongestive heart failure. She is status post recent back surgery for T12 compression fracture. The p atient underwent extensive evaluation with multiple imaging modalities and 2D transthoracic echocardi ogram with results as stated previously. The patient was placed on oxygen supplementation and given IV antibiotic therapy after concern for potential aspiration pneumonia. The patient was evaluated by the Pulmonology Service with recommendations for aggressive pulmonary supportive measures including IV Solu-Medrol, bronchodilator therapy, and IV antibiotics. The patient was also given oxygen supple mentation titrating to clinical response. The patient was slow to clinically improve, requiring pulm onary supportive measures during her hospital course. The patient was noted with paroxysmal atrial f ibrillation, evaluated by Cardiology service with adjustment to recurrent rate control measures inclu ding Coreg. The patient was converting to sinus mechanism and initiated on anticoagulation after GI evaluation and EGD performed 12/23/2017 for esophageal stricture and pyloric stenosis. The patient w as discontinued on amiodarone therapy due to lung changes as stated previously on chest and CT imagin g. The patient continued to clinically stabilize with current recommendations for ongoing physical a nd occupational therapy due to this deconditioning and recent back surgery. The patient has been prosper roved to transition to [facility] for ongoing skilled care. Overall, the patient did remain clinically stable through the hospital course, tolerating regular mechanical soft diet and ambulating with rolling walker and standby assistance and ready for discharge 12/25/2017. DISCHARGE MEDICATIONS: 1. ProAir HFA 2 puffs inhaled q.6 hours. p.r.n. 2. Augmentin 500 mg p.o. b.i.d. until 12/27/2017. 3. Eliquis 2.5 mg p.o. b.i.d. 4. Enteric-coated aspirin 81 mg 1 tab p.o. daily. 5. Coreg 6.25 mg p.o. b.i.d. 6. Pepcid 20 mg p.o. b.i.d. 7. Ferrous sulfate 325 mg p.o. b.i.d. 8. Prozac 60-60 mg p.o. daily. 9. Lasix 20 mg 1 tab p.o. daily. 10. DuoNeb 3 mL nebulized q.6 h. p.r.n. 11. Xopenex 1.25 mg nebulized every 6 hours p.r.n. 12. Lidocaine patch transdermally daily. 13. Claritin 10 mg 1 tab p.o. daily. 14. Dulera 200/500 mcg 1 puff inhaled b.i.d. 15. Klor-Con 20 mEq p.o. b.i.d. 16. Prednisone 40 mg p.o. q.a.m. x3 days, followed by 30 mg p.o. daily x3 days, followed by 20 mg p. o. daily x3 days, followed by 10 mg p.o. daily x3 days. 17. Valtrex 500 mg p.o. daily. FOLLOWUP: The patient to follow up with Dr. Larry Andersen and Dr. Velazquez at [facility]. CONDITION ON DISCHARGE: Stable. ACTIVITY: Ad christiano. Rolling walker with standby/contact guard assistance and fall risk precautions. DIET: Heart healthy, mechanical soft. CODE STATUS: FULL. DISPOSITION: Discharged to [facility], 12/25/2017. Total time preparing and coordinating discharge is 45 minutes.
[2017-12-25 12:46] VITALS: BP 122/60; TEMP 97.8
--- NOTE | 2018-01-31 10:48 | EKG ---
Test Reason : Blood Pressure : / mmHG Vent. Rate : 065 BPM Atrial Rate : 065 BPM P-R Int : 162 ms QRS Dur : 082 ms QT Int : 458 ms P-R-T Axes : 063 075 075 degrees QTc Int : 476 ms Normal sinus rhythm No ST/T wave changes Abnormal ECG Artifact Confirmed by BO YUSUF DO ([id number]), acquisition editor MATEUSZ COSTELLO ([id number]) on 01/31/2018 10:47:47 AM Referred By: Confirmed By:BO YUSUF DO
== END 2017-12-25 13:40 | disposition swing bed (61) | DRG 291 ==
LOC: ERS 15:56 → 2NO 18:13
PROVIDERS: ADMIT Internal Medicine; ATTEND Internal Medicine
PROC: 0D748ZZ Dilation of Esophagogastric Junction, Via Natural or Artificial Opening Endoscopic (ICD-10-PCS; principal; 2017-12-23)
PROC: 0D778ZZ Dilation of Stomach, Pylorus, Via Natural or Artificial Opening Endoscopic (ICD-10-PCS; 2017-12-23)
DX: I11.0 Hypertensive heart disease with heart failure (principal); J96.21 Acute and chronic respiratory failure with hypoxia; J69.0 Pneumonitis due to inhalation of food and vomit; G92 Toxic encephalopathy; E44.0 Moderate protein-calorie malnutrition; C85.90 Non-Hodgkin lymphoma, unspecified, unspecified site; I48.2 Chronic atrial fibrillation; J44.1 Chronic obstructive pulmonary disease with (acute) exacerbation; E87.1 Hypo-osmolality and hyponatremia; J98.11 Atelectasis; Z68.1 Body mass index [BMI] 19.9 or less, adult; I50.33 Acute on chronic diastolic (congestive) heart failure; K21.9 Gastro-esophageal reflux disease without esophagitis; F32.9 Major depressive disorder, single episode, unspecified; H54.8 Legal blindness, as defined in USA; K27.9 Peptic ulcer, site unspecified, unspecified as acute or chronic, without hemorrhage or perforation; K22.2 Esophageal obstruction; H35.30 Unspecified macular degeneration; Z87.891 Personal history of nicotine dependence; E87.6 Hypokalemia
CPT/HCPCS: 36415; 51702; 70450; 71045; 71250; 74230; 80048; 80053; 80069; 82550; 82553; 82607; 82746; 82805; 83605; 83690; 83735; 83880; 84443; 84484; 85007; 85025; 85027; 85610; 85730; 87040; 87633; 87798; 93005; 93306; 93970; 94640; 94667; 94668; 94760; 96365; 96375; A4216; G8978-GP-CM; G8979-GP-CI; G8987-GO-CM; G8988-GO-CJ; G8996-GN-CI; G8997-GN-CI; J0360; J0456; J0692; J0696; J1940; J2001; J2543; J2920; J3480; J7050; J7506; J7620

== ENCOUNTER 2018-04-02 15:10 | Observation (INO) | payer MEDICARE, OTHER ==
[2018-04-02] MEDS ORDERED: PROVENTIL INHALER 6.7 G (200 INHALATIONS) INH PRN (19:01)
[2018-04-02] MEDS ORDERED: Ondansetron ODT 4 MG TAB PO PRN (19:01)
[2018-04-02] MEDS ORDERED: Ondansetron HCl/PF 4 MG/2 ML Vial IVP PRN (19:01)
[2018-04-02] MEDS ORDERED: Acetaminophen 325 MG TAB PO PRN (19:01)
[2018-04-02 19:04] VITALS: TEMP 97.4; BMI 16.9
[2018-04-02] MEDS ORDERED: Carvedilol 6.25 MG TAB PO SCH (20:15)
--- NOTE | 2018-04-02 22:00 | HP ---
DATE OF ADMISSION: 04/02/2018 TIME OF SERVICE: 1700. PRIMARY CARE PHYSICIAN: George Velazquez M.D. CHIEF COMPLAINT: Shortness of breath. HISTORY OF PRESENT ILLNESS: Ms. Ramirez is an 87-year-old female known to me from [facility], who presented to an outside Emergency Department for shortness of breath. She relates a hist ory of having a diarrheal type illness that has gone through the family, it was brought from as a sma ll children to her home. The patient had diarrhea, nausea, vomiting for a few days, it has not resol elissa. During that time, she stopped her Lasix as she was not eating or drinking well and was having i ncreased losses. She has now been able to eat and keep foods down, but subsequently had not restarte d her Lasix yet. She was yet to see her primary care doctor tomorrow and was planning on restarting at that point. Today, she developed acute increase in shortness of breath. She presented to [facility] for evaluation where BNP was 1400. She was satting 84% on room air and had a presentation con [facility] with CHF. She was subsequently transferred here for further treatment. The patient was here back in December of this year for new onset atrial fibrillation and for heart fa ilure. She did receive IV Lasix. She is breathing much better now, is diuresing well, has no current compla ints, but is still 87% on room air. No fevers or chills. No chest pain, no cough, no sputum production. No palpitations. No nausea, vo miting, diarrhea, constipation at present. PAST MEDICAL HISTORY: 1. Paroxysmal atrial fibrillation. 2. Chronic diastolic congestive heart failure. 3. Chronic obstructive pulmonary disease. 4. Gastroesophageal reflux disease. 5. Hypertension. 6. Peptic ulcer disease. 7. History of esophageal stricture. 8. Non-Hodgkin's lymphoma. 9. Accidental opioid overdose in the past. PAST SURGICAL HISTORY: 1. Tonsillectomy. 2. T12 compression fracture repair. 3. Esophageal stricture repair likely dilation. 4. Stomach surgery likely EGD for ulcer. HOME MEDICATIONS: 1. Valacyclovir 500 mg p.o. daily. 2. Protonix 40 mg daily. 3. Lidocaine patch 5% transdermal during the day, off at night. 4. Lasix 20 mg currently on Mondays and , used to be 3 times a week. 5. Fluoxetine 60 mg p.o. daily. 6. Coreg 12.5 mg p.o. b.i.d. 7. Albuterol MDI p.r.n. ALLERGIES: FLAGYL, SULFA AND TRAMADOL. FAMILY HISTORY: Negative for clotting or bleeding disorder. No immune dysfunction. SOCIAL HISTORY: Negative for habits x3. She lives at home, has a caregiver most hours of the day. Her daughter lives nearby and makes help to make her medical decisions. The patient does have a [facility] power of staff attorney and is named her daughter, Delma Landa, in [place] as her medical power of staff attorney and Mat Landa is the first alternate and Angelina Limon is the second. Her documents were scanned in the chart from the last hospital stay. Otherwise, the patient is a FULL CODE. REVIEW OF SYSTEMS: All systems were reviewed and negative except as stated per HPI. PHYSICAL EXAMINATION: VITAL SIGNS: Temperature 97.7, pulse 87, blood pressure 102/69, respiratory rate 22. 84% on room ai r initially, then 87% on room air, here after Lasix 94% to 96% on 2 liters nasal cannula. GENERAL: She is awake, alert, and oriented x3. She is a frail, thin, cachectic-looking white female , who was in no acute distress. She looks comfortable and talking in full sentences. HEENT: Normocephalic, atraumatic. Pupils equal, round, react to light bilaterally. Mucous membrane s are moist. No visible lesions. No thrush. NECK: Supple. There is no lymphadenopathy, JVD or thyromegaly. She has normal carotid upstrokes. I do not appreciate bruits. LUNGS: Clear anteriorly with adequate air movement. She has some fine bibasilar crackles. wit h deep inspiration. CARDIOVASCULAR: She is irregularly irregular, but normal rate. She has a faint 2/6 systolic ejectio n murmur. ABDOMEN: Scaphoid, nontender, nondistended. She has good bowel sounds in all four quadrants. There is no rebound, rigidity or guarding. EXTREMITIES: No cyanosis, no clubbing and trace pedal edema. It is nonpitting. SKIN: Otherwise warm, moist, and well perfused. Her skin is thin and frail. She has no other rashe s or lesions noted. MUSCULOSKELETAL: Normal to inspection. normal. There is no evidence of inflammation or palpa ble effusion. NEUROLOGIC: Cranial nerves II-XII are grossly intact. She has no focal deficits. Normal speech pat tern, 3-1/2 to 4/5 strength. LABORATORY DATA: Sodium 145, potassium 3.5, chloride 99, bicarbonate 34, BUN 11, creatinine 0.82, gl ucose 105. Liver function within normal limits. CBC showed a white count of 12.3, hemoglobin 16.3, hematocrit 53.1, platelet count 426,000. Chest x-ray showed a small right-sided pleural effusion, th at is stable. ASSESSMENT AND PLAN: 1. Acute on chronic diastolic congestive heart failure. 2. Paroxysmal atrial fibrillation. 3. Chronic obstructive pulmonary disease without acute exacerbation. 4. Gastroesophageal reflux disease, stable. 5. Essential hypertension. 6. History of peptic ulcer disease. 7. Depression. 8. History of non-Hodgkin's lymphoma. We placed the patient in observation. We will give IV Lasix. She had a dose this evening. We will give another dose in the morning. Watch her I's and O's and watch on the monitor. We will wean the oxygen as tolerated and continue the rest of her home medications. She does well and will let her go home tomorrow. I do not think she has had a failure of her regular treatment, she was just off of r egular Lasix due to the recent diarrheal illness
[2018-04-03 04:56] LABS: #Basophils 0.1 thou/uL (0.0-0.2); #Eosinphils 0.2 thou/uL (0.0-0.7); #Lymphocytes 0.9 thou/uL (1.20-3.40); #Monocytes 0.9 thou/uL (0.11-0.59); #Neutrophils 7.8 thou/uL (1.40-6.50); %Eosinophils 2.2 % (0.0-10.0); %Lymphocytes 8.7 % (21.0-51.0); %Monocytes 8.8 % (0.0-10.0); %Neutrophils 79.3 % (42.0-75.0); Hemoglobin 14.6 g/dL (12.0-16.0); Mean Corpuscular HGB CONC 32.1 g/dL (32.0-36.0); Mean Corpuscular Volume 99.7 fl (81.0-99.0); Mean Platelet Volume 9.8 fL (7.4-10.4); Platelet Count 325 thou/uL (130-400); RBC Distribution Width 14.8 % (11.5-14.5); Red Blood Cell (RBC) Count 4.57 mill/uL (4.20-5.40); White Blood Cell (WBC) Count 9.8 thou/uL (4.8-10.8)
[2018-04-03 04:59] LABS: Anion Gap 11 mmol/L (10-20); BUN (Urea Nitrogen) 21 mg/dL (9.8-20.1); Calc. Creatinine Clearance 24 mL/min (70-130); Calcium 9.5 mg/dL (7.8-10.44); Carbon Dioxide 33 mmol/L (23-31); Chloride 101 mmol/L (98-107); Estimated GFR-MDRD 45; Glucose 122 mg/dL (83-110); Potassium 3.4 mmol/L (3.5-5.1); Sodium 142 mmol/L (136-145)
[2018-04-03] MEDS ORDERED: Furosemide 20 MG/2 ML VIAL SLOW IVP SCH (06:00)
[2018-04-03] MEDS ORDERED: Carvedilol 6.25 MG TAB PO SCH (08:00)
[2018-04-03 08:22] VITALS: BP 105/63
[2018-04-03] MEDS ORDERED: Lidocaine 5% Patch TD SCH (09:00)
[2018-04-03] MEDS ORDERED: valACYclovir 500 MG TAB PO SCH (09:00)
[2018-04-03] MEDS ORDERED: FLUoxetine HCl 20 MG CAP PO SCH (09:00)
[2018-04-03] MEDS ORDERED: Aspirin 81 mg Enteric Coated Tablet PO SCH (09:00)
--- NOTE | 2018-04-03 12:56 | DIS ---
DATE OF ADMISSION: 04/02/2018 DATE OF DISCHARGE: 04/03/2018 PRIMARY CARE PHYSICIAN: Larry Andersen M.D. DISCHARGE DIAGNOSES: 1. Acute on chronic diastolic congestive heart failure. 2. Paroxysmal atrial fibrillation. 3. Chronic obstructive pulmonary disease, oxygen dependent. 4. Acute on chronic hypoxemic respiratory failure. 5. Medical nonadherence. 6. Gastroesophageal reflux disease. 7. Essential hypertension. 8. History of peptic ulcer disease. 9. History of esophageal stricture. 10. Non-Hodgkin lymphoma, chronic, in remission. CONSULTATIONS: None. PROCEDURES: None. HOSPITAL COURSE: Ms. Ramirez is an 87-year-old female known to me from a hospitalization in December . She had a diarrheal illness recently at home and had stopped her Lasix that she was losing weight after going from 3 times a week Lasix to twice a week Lasix. She was supposed to see Dr. Andersen today for followup, but felt more short of breath, so went to [facility] ER. There she was "diagnosed" with hypoxemic respiratory failure with oxygen saturation of 84% on room ai r, and incidentally never is off of oxygen, at home is on 2-1/2 to 3 liters constantly. She was subs equently given a dose of Lasix and transferred here for further workup and admission. On arrival here, she was still "hypoxic" on 87% on room air. We were called for admit. The patient was accepted and placed in observation. She was seen on the floor. At that time, we got the history that she is on oxygen constantly. Oxygen saturations were 97+ % on 2-3 liters nasal cannula. Breathing was much better after IV Lasix. She was recently admitted here in 12/2017 for acute on chronic diastolic congestive heart failure and new onset atrial fibrillation with RVR. She had an echocardiogram at that time. The patient denies any chest pain, no cough or sputum production. No nausea or vomiting. HOSPITAL COURSE: The patient was seen and examined by me on admission. She was continued on IV Lasi x with a dose in the morning. She was watched overnight and maintained on oxygen. This morning, she was able to lay flat and had no orthopnea or PND overnight. She had no dyspnea on exertion, was at her baseline and was stable for discharge with outpatient followup. PHYSICAL EXAMINATION: The patient was seen and examined on the day of discharge. Discharge plan and disposition was discussed with the patient and her daughter face to face at the [facility]. DISCHARGE MEDICATIONS: 1. Tylenol p.r.n. 2. Albuterol HFA 2 puffs q.6 hours p.r.n. 3. Aspirin 81 mg daily. 4. Coreg 12.5 mg p.o. b.i.d. 5. Bentyl 10 mg p.o. q.i.d. p.r.n. abdominal spasm. 6. Diphenoxylate/atropine 2 tabs q.i.d. p.r.n. 7. Prozac 60 mg daily. 8. Lasix changed from 20 mg 3 times a week, decreased to 5 mg p.o. daily. 9. Lidocaine patch 5% on the morning, off at bedtime. 10. Claritin 10 mg daily. 11. Protonix 40 mg daily. 12. Valtrex 500 mg daily. DISCHARGE INSTRUCTIONS: Stable. DISPOSITION: Discharged to home via private vehicle with his primary caregivers. DISCHARGE ACTIVITY: Per cardiopulmonary limits. DISCHARGE DIET: Heart healthy recommended, no fluid restriction. FOLLOWUP APPOINTMENTS: 1. Dr. Andersen within a week. 2. Dr. Freeman in 2 weeks. I discussed the case on the phone with him.
[2018-04-03] MEDS ORDERED: Lidocaine Patch Removal 1 EACH TOP SCH (21:00)
== END 2018-04-03 11:13 | disposition home or self-care (01) ==
LOC: ERS 15:10 → 2SW 16:23
PROVIDERS: ADMIT Internal Medicine Infectious Disease; ATTEND Internal Medicine Infectious Disease
DX: I11.0 Hypertensive heart disease with heart failure (principal); I50.33 Acute on chronic diastolic (congestive) heart failure; I48.0 Paroxysmal atrial fibrillation; J96.21 Acute and chronic respiratory failure with hypoxia; J44.9 Chronic obstructive pulmonary disease, unspecified; K21.9 Gastro-esophageal reflux disease without esophagitis; K27.9 Peptic ulcer, site unspecified, unspecified as acute or chronic, without hemorrhage or perforation; C85.90 Non-Hodgkin lymphoma, unspecified, unspecified site; Z79.899 Other long term (current) drug therapy; Z88.2 Allergy status to sulfonamides; Z88.1 Allergy status to other antibiotic agents; Z88.5 Allergy status to narcotic agent; Z99.81 Dependence on supplemental oxygen; Z91.14 Patient's other noncompliance with medication regimen
CPT/HCPCS: 80048; 83735 ×2; 83880 ×2; 85025; 93005; 94760; 96374; 99285; G0378; 36415; J1940

== ENCOUNTER 2018-07-11 02:54 | Emergency (ER) | payer MEDICARE, OTHER ==
[2018-07-11] MEDS ORDERED: Acetaminophen 500 MG TAB ONE (04:30)
[2018-07-11 04:31] LABS: Hemoglobin 16.8 g/dL (12.0-16.0); Mean Corpuscular HGB CONC 31.1 g/dL (32.0-36.0); Mean Corpuscular Hemoglobin 30.4 pg (27.0-31.0); Mean Corpuscular Volume 97.7 fL (78.0-98.0); Mean Platelet Volume 8.5 fL (7.4-10.4); Platelet Count 508 thou/uL (130-400); RBC Distribution Width 16.2 % (11.5-14.5); Red Blood Cell (RBC) Count 5.54 mill/uL (4.20-5.40); White Blood Cell (WBC) Count 23.7 thou/uL (4.8-10.8)
[2018-07-11 04:33] LABS: CKMB 2.7 ng/mL (0-6.6)
[2018-07-11 04:38] LABS: Bilirubin Small (Negative); Blood, Urine Negative (Negative); Clarity CLEAR (Clear); Glucose, Urine (Dipstick) Negative (Negative); Leukocyte Negative (Negative); Nitrite Negative (Negative); Protein, Urine (Dipstick) 100 mg/dL (Neg-Trace); Specific Gravity, Urine 1.019 (1.002-1.036); pH, Urine 5.5 (5.0-9.0)
[2018-07-11 04:43] LABS: Bacteria/HPF None Seen HPF (None Seen); Hyaline Casts/LPF 0-3 HYALINE CAST LPF (0-3 Hyaline); RBC/HPF 0-3 HPF (0-3); Squamous Epithelial None Seen HPF (0-3); WBC/HPF None Seen HPF (0-3)
[2018-07-11 04:59] LABS: Band 11 % (5-11); Large Platelets SLIGHT; Lymphocytes 3 % (21-51); MDiff Complete? YES; Monocytes 6 % (0-10); Neutrophil 79 % (42-75); PLT Morphology Comment Appears Increased; Reactive Lymphocytes 1 % (0-10)
[2018-07-11] MEDS ORDERED: Cefepime 2 GM in Sodium Chloride 0.9% 100 ML IVPB SCH (05:45)
[2018-07-11] MEDS ORDERED: Ondansetron HCl/PF 4 MG/2 ML Vial ONE (05:54)
[2018-07-11 06:19] LABS: ALT (SGPT) 17 U/L (8-55); AST (SGOT) 21 U/L (5-34); Albumin 3.7 g/dL (3.4-4.8); Alkaline Phosphatase 76 U/L (40-150); Anion Gap 18 mmol/L (10-20); BUN (Urea Nitrogen) 20 mg/dL (9.8-20.1); Bilirubin, Total 1.6 mg/dL (0.2-1.2); CK (CPK) 31 U/L (29-168); Calc. Creatinine Clearance 0 mL/min (70-130); Calcium 9.4 mg/dL (7.8-10.44); Carbon Dioxide 24 mmol/L (23-31); Chloride 103 mmol/L (98-107); Estimated GFR-MDRD 61; Globulin 2.3 g/dL (2.4-3.5); Glucose 136 mg/dL (83-110); Lipase 7 U/L (8-78); Potassium 4.8 mmol/L (3.5-5.1); Sodium 140 mmol/L (136-145)
[2018-07-11 07:31] LABS: Troponin I 0.031 ng/mL (< 0.028)
[2018-07-11] MEDS ORDERED: Norepinephrine 8 MG/0.9% NS 250 ML ONE (07:42)
--- NOTE | 2018-07-11 07:56 | RAD ---
SINGLE VIEW OF THE CHEST: COMPARISON: 04/02/18. HISTORY: Weakness. FINDINGS: A single view of the chest shows a cardiomediastinal silhouette which is upper limits of normal in si ze. Increased interstitial lung markings are present. There is no evidence of consolidation, mass, or pleural effusion. IMPRESSION: No evidence of acute cardiopulmonary disease. POS: CET
--- NOTE | 2018-07-11 07:59 | RAD ---
SINGLE VIEW OF THE CHEST: HISTORY: Line placement. FINDINGS: A single view of the chest shows a normal-size cardiomediastinal silhouette. There is a right subcla vian central venous catheter with its tip in the superior vena cava. Increased interstitial lung mar kings are present. No pneumothorax is seen. IMPRESSION: 1. Status post central venous catheter placement without evidence of complication. 2. Chronic interstitial lung disease. POS: CET
--- NOTE | 2018-07-11 08:49 | HP ---
CHIEF COMPLAINT: Right upper quadrant abdominal pain. HISTORY OF PRESENT ILLNESS: This is an 87-year-old female, who reports falling 3 days ago. She thou ght she broke a rib. She hit her right side. Over the last 3 days, she has had progressive increasi ng abdominal pain. She says she has felt clammy. She has been nauseated, dry heaving. She has had diarrhea and weakness. She reports a 20-pound weight loss over the last year. She had a colonoscopy 2 years ago and EGD 2 years ago. She denies any fever. She was brought in by ambulance, as she had a change in mental status. PAST MEDICAL HISTORY: Significant for COPD, congestive heart failure, chronic atrial fibrillation, g astroesophageal reflux, peptic ulcer disease. She has had a history of lymphoma. PAST SURGICAL HISTORY: She has had a tonsil and adenoidectomy. She has had a T12 compression fractu re. She has had esophageal dilatation. She has had a previous stomach surgery for peptic ulcer dise ase, which we do not know what they did. ALLERGIES: She has allergies to TRAMADOL, MILK, SULFA, and Flagyl. MEDICATIONS: She is on valacyclovir, Protonix, lidocaine patch, Lasix, fluoxetine, Coreg, and albute rol. SOCIAL HISTORY: She lives alone. She has a caregiver. No tobacco, no alcohol. FAMILY HISTORY: Noncontributory. PHYSICAL EXAMINATION: GENERAL: She came in hypotensive. She responded to fluids. She is thin and lying still, lethargic, but oriented. VITAL SIGNS: Her pulse is 89, blood pressure 94/59, she is afebrile. HEENT: Bitemporal wasting. LUNGS: Clear. HEART: Irregularly irregular. ABDOMEN: Tender in the right upper quadrant. She does not appear to be distended. PELVIS: Unremarkable. LABORATORY AND X-RAY FINDINGS: Her white count is 23,700, her H and H is 16 and 54, platelet count 5 08. Her electrolytes show an elevated glucose of 136, creatinine is 0.8, BUN of 20. Her BNP is 1239 .6. Total bilirubin is 1.6. CT scan of the abdomen initially showed free fluid consistent with bloo d in the abdomen, area around the liver, a questionably occluded SMV. 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 ASSESSMENT: History of trauma, progressive abdominal pain, blood in the abdomen, hepatic artery aneu rysm. PLAN: Vascular consultation. Admit to ICU.
--- NOTE | 2018-07-11 09:11 | CT ---
PRELIMINARY REPORT/[facility]/EMERGENTY AFTER-HOURS PROCEDURE CTA CHEST/ABDOMEN WWO Addendum created by Parth Guerrero MD on 07/11/2018 6:06 AM Central Time ([place] & [place]) THIS REPORT CONTAINS FINDINGS THAT MAY BE CRITICAL TO PATIENT CARE. The findings were verbally commun icated via telephone conference with SHARON KEMP at 6:06 AM CDT on 07/11/2018. The findings were acknowledged and understood. Initial Report created on 07/11/2018 5:40 AM Central Time ([place] & [place]) CT Angiography Chest With Intravenous Contrast CLINICAL HISTORY: 87 years old, female; Pain; Chest pain; Abdominal pain; Generalized; Patient HX: F87 presented to ed C/O weakness and "stomach issue" onset today. Caregiver describes stomach issues as diarrhea and stom ach cramping. Caregiver reports that patient has not been eating or drinking well today. Caregiver notes that the patient was diaphoretic throughout the day, but did not have a fever at home . Pt reports she sustained multiple rib fractures after having cpr performed on her when she coded du e to over administration of opioid pain medication 4 months ago. Pt reports surgical HX of __. Pt den ies HX of pe or dvt. Pt also complaining of chest pain, but notes the chest pain is chronic , subster nal, and began after having cpr performed on her. Caregiver reports patient wears 3l of oxygen at edwin e. TECHNIQUE: Axial computed tomographic angiography images of the chest with intravenous contrast using pulmonary embolism protocol. MIP reconstructed images were created and reviewed. COMPARISON: No relevant prior studies available. FINDINGS: Pulmonary arteries: There is no evidence of peripheral filling defects within the pulmonary arterial circulation to suggest pulmonary embolism. Aorta: There is no evidence of aortic dissection, leak, rupture, or other complications. The thoracic aorta is at the upper limits of normal in diameter measuring 2.5 cm at the aortic arch 3.3 cm within the descending aorta. The aorta demonstrates moderate atherosclerotic calcification. Lungs: Severe centrilobular emphysematous changes are present. There is scarring at the lung apices. Pleural space: There is a small RIGHT and trace LEFT pleural effusion with atelectasis of the lung ba ses. No pneumothorax. Heart: Normal. No cardiomegaly. No significant pericardial effusion. No evidence of RV dysfunction. Mediastinum: There is fluid seen within the esophagus compatible with reflux. Bones/joints: No acute fracture. No dislocation. Soft tissues: Normal. Lymph nodes: Normal. No enlarged lymph nodes. IMPRESSION: 1. There is no CT evidence of acute pulmonary embolism. 2. There is no evidence of aortic dissection, leak, rupture, or other complications. Aortic diameter is at the upper limits of normal. 3. There is fluid seen within the esophagus compatible with reflux. CT Angiography Abdomen With Intravenous Contrast EXAM DATE/TIME: Exam ordered 07/11/2018 4:48 AM TECHNIQUE: Axial computed tomographic angiography images of the abdomen with intravenous contrast. MIP reconstru cted images were created and reviewed. COMPARISON: No relevant prior studies available. FINDINGS: Aorta: The aorta demonstrates moderate atherosclerotic calcification. No abdominal aortic aneurysm. N o dissection. Celiac trunk and mesenteric arteries: There is atherosclerotic calcification at the origin of the harvinder iac artery resulting in mild stenosis. The SMA is patent. Renal arteries: There is atherosclerotic ossification at the origins of the bilateral renal arteries tilting and mild stenosis. Lung bases: Normal. No mass. No consolidation. Liver: There is large soft tissue abnormality within the ginny hepatic region measuring at least 8 x 4 x 10 cm, incompletely evaluated on these early arterial phase images. Differential diagnosis includ es large abdominal hemorrhage and/or neoplasm with peritoneal carcinomatosis. Hyperdense perihepatic fluid is also noted. There is a 12 x 12 x 13 mm round hyperdense enhancing structure whic h appears to extend from a branch of the RIGHT hepatic artery consistent with a large pseudoaneurysm. Gallbladder and bile ducts: The gallbladder is normal. There is no evidence of biliary ductal dilatio n. No calcified stones. Pancreas: The pancreas appears normal. No ductal dilation. Spleen: The spleen is normal. Adrenals: Normal. No mass. Kidneys and ureters: There are multiple simple left renal cysts. There are multiple right renal hypod ensities that cannot be further characterized on the current examination. No hydronephrosis. Stomach and bowel: The stomach is normal. No obstruction. No mucosal thickening. Intraperitoneal space: Normal. No significant fluid collection. No free air. Bones/joints: There is kyphoplasty repair at T12 No acute fracture. No dislocation. Soft tissues: Normal. No mass. Lymph nodes: Not well visualized. IMPRESSION: 1. Large ginny hepatis soft tissue abnormality, incompletely evaluated on these early arterial phase images but extremely suspicious for large abdominal hemorrhage. Neoplasm with peritoneal carcinomatos is may or may not also be present. 2. 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 Thank you for allowing us to participate in the care of your patient. Dictated and Authenticated by: Parth Guerrero MD 07/11/2018 5:40 AM Central Time ([place] & [place]) FINAL REPORT EMERGENT AFTER HOURS CT ANGIOGRAM WITH IV CONTRAST AND 3D RECONSTRUCTIONS EMERGENT AFTER HOURS CT ANGIOGRAM ABDOMEN WITH IV CONTRAST AND 3D RECONSTRUCTIONS: DATE: 07/11/18. HISTORY: Patient with generalized abdominal pain which started 1 day ago. History of fall approximately 5-7 d ays ago. IMPRESSION: 1. Atherosclerotic vascular calcifications and plaque seen within the abdominal aorta and involving the iliac arteries. There is no evidence of an aortic dissection. 2. Pulmonary arteries demonstrate no filling defect to suggest a pulmonary embolus. 3. Cardiomegaly. 4. Dense atherosclerotic vascular calcifications in the coronary arteries. 5. Fluid-filled esophagus which may be related to gastroesophageal reflux. 6. Bilateral pleural effusions and associated atelectasis. 7. Large parenchymal area of mixed and increased density seen in the region of the ginny hepatis and posterior to the liver with adjacent fluid with increased density fluid also adjacent to the right h epatic lobe and inferior aspect of liver and right paracolic gutter suggesting hemorrhage. No finding s to suggest active extravasation of contrast on this arterial phase of imaging. 8. Mild narrowing at the origin of the celiac artery; the celiac and superior mesenteric arteries ar e otherwise patent. The inferior mesenteric artery is not visualized and may be occluded. There is abnormal appearance of the superior mesenteric vein which cannot be adequately evaluated on the non-e nhanced CT exam. 9. There are intervening areas of mild narrowing involving branches of the hepatic arteries, and the re is evidence of a pseudoaneurysm involving a right hepatic arterial branch measuring 1.2 cm. No dis section is seen, but segmental arterial mediolysis is a possibility. 10. Hypodense cystic lesions left kidney demonstrating findings compatible with cysts measuring 1.9 c m and 2 cm respectively. 12. Degenerative changes of the spine including vertebroplasty changes of T12 vertebral body. 13. Chronic obstructive pulmonary disease with emphysematous changes seen throughout the lungs bilate rally. 14. Findings are in agreement with the preliminary report by [facility]. 15. Portal venous phase of imaging may be helpful to findings in the upper abdomen. These findings were discussed with Dr. Irene on 07/11/18 at [id number] hours. CODE CR POS: NEHA
--- NOTE | 2018-07-11 09:33 | CT ---
CT ABDOMEN AND PELVIS WITH IV CONTRAST: DATE: 07/11/18. HISTORY: Findings demonstrating what appeared to be parenchymal hematoma in the upper abdomen on arterial phas e of imaging. Further evaluation was requested for portal venous phase of imaging. The patient has a history of trauma 5 days ago and now has diffuse abdominal pain. FINDINGS: Portal venous phase of imaging as well as delayed imaging through the abdomen and pelvis was performe d. Comparison is made with CTA of the abdomen on 07/11/18 at 0452 hours. As noted on the prior exam, there is cardiomegaly. Bilateral pleural effusions and associated passiv e atelectasis are present. The celiac and superior mesenteric arteries appear patent, except for mild narrowing at the origin of the celiac artery. The ANTON is not visualized. Atherosclerotic vascular calcifications are seen in the abdominal aorta and involving the iliac arteries. 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 On the portal venous phase of imaging, the liver demonstrates wedge-shaped areas of diminished attenu ation with greater diminished attenuation involving the left hepatic lobe. Findings are probably rel ated to hypoperfusion as opposed to areas of infarction as 3-minute delayed images demonstrate more n ormal enhancement of the liver aside from subcentimeter too small to characterize hypodense lesion in the right hepatic lobe. There is enhancement seen within the inferior portion of the superior mesenteric vein, but the superi or mesenteric vein just proximal to the confluence is not visualized, and this is also in the region of the large parenchymal hematoma seen on the CTA examination. Delayed images demonstrate irregular areas of enhancement likely related to extravasation which are not confined to normal vascular struct ures and are likely related to extravasation of contrast secondary to venous hemorrhage. This area o f parenchymal hematoma and extravasation is in the region of the superior mesenteric vein, and findin gs may be related to injury with rupture and extravasation from the superior mesenteric vein. There is attenuation of portions of the splenic vein as well as the portal veins and IVC in the regio n of the areas of hemorrhage, related to volume depletion as well as mass effect from the area of hem orrhage within the upper abdomen. Subcentimeter too small to characterize hypodense lesions are seen in each kidney in addition to bila teral renal cysts. There is a linear density seen within the posterior and inferior aspect of the body of the spleen whi ch may represent a cleft. This is not thought to be related to a laceration from injury. There is a small amount of fluid adjacent to the spleen. Urinary bladder is partially distended and has otherwise normal appearance with what appears to be sm all urinary bladder diverticulum on the right side of the urinary bladder. Uterus is small in size. There is colonic diverticulosis. There is increased density fluid seen within the pelvis. Multilevel degenerative changes are seen in the spine. There are vertebroplasty changes involving th e T12 vertebral body. IMPRESSION: 1. Active venous extravasation of contrast is seen within the upper abdomen which is located in the region of the ginny hepatis and in the expected location of the superior mesenteric vein. On delayed phase of imaging, the superior mesenteric vein just proximal to the confluence is not seen, and find ings are suggestive of injury and rupture of the superior mesenteric vein. In addition, the main por april vein is also not well visualized or evaluated on this examination which also could be related to injury as there are areas of hemorrhage in this region as well or possibly secondary to compression d ue to the hematoma within the region of the ginny hepatis. 2. 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 3. Areas of narrowing within the hepatic arteries of uncertain etiology with more normal-caliber are as also noted on the prior exam. Segmental arterial mediolysis cannot be entirely excluded; although , no definite arterial dissections were present on the prior exam. 4. Free fluid in the pelvis demonstrating increased density consistent with hemorrhage. 5. Bilateral renal cysts in addition to subcentimeter too small to characterize hypodense lesions in each kidney. 6. Colonic diverticulosis. 7. Degenerative changes in the spine with vertebroplasty changes T12 vertebral body. 8. The above findings were discussed with Dr. Irene in the emergency department on 07/11/18 at 0806 h ours. CODE CR POS: [facility]
[2018-07-11] MEDS ORDERED: ISOVUE-370 76%-LOCM 1 ML ONE ×2 (10:07)
--- NOTE | 2018-07-11 14:52 | CON ---
DATE OF CONSULTATION: 07/11/2018 HISTORY OF PRESENT ILLNESS: This is an 87-year-old who presented with complaining of pain all over h er body. When asked specifically where, she would point to her lower chest in the mid portion. She was seen in the ER where she was found to be hypotensive as well as with lactic acidosis. 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 PAST MEDICAL HISTORY: Atrial fibrillation, peptic ulcer disease, lymphoma, congestive heart failure, and COPD. PAST SURGICAL HISTORY: Included a T and A as well as some work on her T12 vertebral body. She has a previous esophageal dilatation and perhaps peptic ulcer surgery. ALLERGIES: TRAMADOL, SULFA, FLAGYL. MEDICATIONS: Protonix, Lasix, fluoxetine, Coreg, and albuterol. She lives alone, although has a ful l time caregiver. PHYSICAL EXAMINATION: GENERAL: She appears her stated age, thin, frail, but alert and oriented. VITAL SIGNS: Her heart rate is 90, her blood pressure is 85. She is afebrile. LUNGS: Clear to auscultation. CARDIAC: Irregular. ABDOMEN: Tender, particularly in the epigastrium and right upper quadrant. All pain is referred to those areas. EXTREMITIES: She has palpable popliteal pulses bilaterally as well as femoral pulses. PLAN: At this time, there is no evidence of extravasation in the region of the hepatic artery pseudo aneurysm. More concerning is the etiology of the portal inflammatory mass or hemorrhage which once a gain does not appear to be coming from the hepatic artery pseudoaneurysm. This hepatic artery pseudo aneurysm could be coiled; however, did not think that is the cause of her current problems. Her hemo globin is 16. Her white count is 24,000 and her urine is negative.
--- NOTE | 2018-07-12 20:03 | EKG ---
Test Reason : Blood Pressure : / mmHG Vent. Rate : 083 BPM Atrial Rate : 083 BPM P-R Int : 156 ms QRS Dur : 078 ms QT Int : 468 ms P-R-T Axes : 086 032 061 degrees QTc Int : 549 ms Poor data quality, interpretation may be adversely affected Normal sinus rhythm ST abnormality, possible digitalis effect Prolonged QT Abnormal ECG Confirmed by SHARON KEMP ([id number]), tape editor MATEUSZ COSTELLO ([id number]) on 07/12/2018 8:03:29 PM Referred By: Confirmed By:SHARON KEMP
== END 2018-07-11 09:53 | disposition short-term general hospital (02) ==
LOC: ERS 02:54
DX: K66.8 Other specified disorders of peritoneum (principal); I95.9 Hypotension, unspecified; E87.2 Acidosis; I48.91 Unspecified atrial fibrillation; J44.9 Chronic obstructive pulmonary disease, unspecified; K21.9 Gastro-esophageal reflux disease without esophagitis; I11.0 Hypertensive heart disease with heart failure; I50.9 Heart failure, unspecified; F32.9 Major depressive disorder, single episode, unspecified; Z87.891 Personal history of nicotine dependence; Z79.899 Other long term (current) drug therapy; Z79.82 Long term (current) use of aspirin
CPT/HCPCS: 36415; 36556; 51701; 71045; 71275; 74177; 80053; 81003; 81015; 82550; 82553; 83605; 83690; 83880; 84443; 84484; 85025; 86850; 86900; 86901; 87040; 87086; 93005; 96361; 96365; 96367; 96374; A4353; J0692; J2405; J3370; J7050